=== PATIENT | female | born 1980 | race Hispanic/Latino ===

== ENCOUNTER 2018-04-26 10:16 | Emergency (ER) | payer SELFPAY ==
[2018-04-26] MEDS ORDERED: TETANUS & DIPHTHERIA TOX,ADULT 0.5 ML VIAL ONE (10:20)
[2018-04-26] MEDS ORDERED: ONDANSETRON 4 MG/2 ML VIAL ONE (10:20)
[2018-04-26] MEDS ORDERED: NA CHLORIDE 0.9% 1,000 ML ONE (10:30)
[2018-04-26] MEDS ORDERED: SILVER SULFADIAZINE 1% 25 GM TOP ONE (10:30)
[2018-04-26] MEDS ORDERED: HYDROMORPHONE HCL 1 MG/ML INJ ONE (11:09)
--- NOTE | 2018-04-26 11:09 | ER ---
Nurse's Notes [facility] Name: Judy Cho Age: 37 yrs Sex: Female : 1980 Arrival Date: 04/26/2018 Time: 10:17 Bed 7 Private MD: Diagnosis: Burn of second degree of ankle;Burn of first degree of left toe(s) (nail) Presentation: 04/26 10:20 Presenting complaint: Patient states: was making menudo when hot water spilled onto the sg top of her right foot and the interior right ankle, pain 10/10 described as burning, tender, throbbing. Transition of care: patient was not received from another setting of care. Onset of symptoms was April 26, 2018. Risk Assessment: Do you want to hurt yourself or someone else? Patient reports no desire to harm self or others. Initial Sepsis Screen: Does the patient meet any 2 criteria? No. Patient's initial sepsis screen is negative. Does the patient have a suspected source of infection? No. Patient's initial sepsis screen is negative. Care prior to arrival: None. 10:20 Method Of Arrival: Ambulatory sg 10:20 Acuity: MIAH 3 sg Triage Assessment: 10:30 Injury Description: sg Historical: - Allergies: 10:19 No Known Allergies; sv - Home Meds: 10:37 None [Active]; sg - PMHx: 10:37 None; sg - PSHx: 10:37 None; sg - Immunization history:: Adult Immunizations up to date, Last tetanus immunization: unknown. - Social history:: Smoking status: Patient/guardian denies using tobacco. - Ebola Screening: : Patient negative for fever greater than or equal to 101.5 degrees Fahrenheit, and additional compatible Ebola Virus Disease symptoms Patient denies exposure to infectious person Patient denies travel to an Ebola-affected area in the 21 days before illness onset No symptoms or risks identified at this time. Screenin:20 Abuse screen: Denies threats or abuse. Denies injuries from another. Nutritional sg screening: No deficits noted. Tuberculosis screening: No symptoms or risk factors identified. Never had TB. Fall Risk None identified. Assessment: 10:26 Reassessment: cool damp 4x4's applied to burned area per EDISON S.Shandra MACHINE STEMMER order. sg General: Appears in no apparent distress. uncomfortable, well groomed, well developed, well nourished, Behavior is calm, cooperative, appropriate for age. Pain: Complains of pain in dorsum of right foot and anterior aspect of right ankle Quality of pain is described as burning, throbbing. Neuro: No deficits noted. Cardiovascular: Heart tones S1 S2 present Capillary refill is brisk in bilateral fingers toes Patient's skin is warm and dry. Chest pain is denied. Respiratory: Airway is patent Respiratory effort is even, unlabored, Respiratory pattern is regular, tachypnea Breath sounds are clear. GI: Abdomen is round non-distended, obese, Patient currently denies abdominal pain, nausea, pain, vomiting. : No signs and/or symptoms were reported regarding the genitourinary system. EENT: No signs and/or symptoms were reported regarding the EENT system. Derm: Skin is normal. Musculoskeletal: Circulation, motion, and sensation intact. Range of motion: intact in all extremities, Swelling present in dorsum of right foot and anterior aspect of right ankle. Injury Description: Burn was sustained 30-60 minutes ago. Patient sustained second-degree burn(s) to anterior aspect of right ankle. Estimated total body surface area burned is 1.75%, using the Rule of 9's. blistering noted to burned area of foot. 11:20 Reassessment: Patient appears in no apparent distress at this time. Patient and/or sg family updated on plan of care and expected duration. Pain level reassessed. Patient is alert, oriented x 3, equal unlabored respirations, skin warm/dry/pink. Patient states feeling better. Vital Signs: 10:25 BP 176 / 98; Pulse 89; Resp 19; Temp 98.4(O); Pulse Ox 98% on R/A; Weight 90.72 kg; dh3 Height 5 ft. 7 in. (170.18 cm); Pain 10/10; 12:00 BP 155 / 62; Pulse 82; Resp 17 S; Pulse Ox 100% on R/A; Pain 6/10; sv 10:25 Body Mass Index 31.32 (90.72 kg, 170.18 cm) dh3 Elias Coma Score: 12:00 Eye Response: spontaneous(4). Verbal Response: oriented(5). Motor Response: obeys sv commands(6). Total: 15. ED Course: 04/25 10:30 Patient has correct armband on for positive identification. Bed in low position. Call sg light in reach. Side rails up X2. Pulse ox on. NIBP on. Verbal reassurance given. Head of bed elevated. Elevated right foot. 04/26 10:17 Patient arrived in ED. sv 10:18 Ishaan Lynch MD is Attending Physician. gs 10:18 Lydia Devi FNP-C is PHCP. snw 10:20 Arm band placed on. sg 10:35 Triage completed. sg 10:35 No provider procedures requiring assistance completed. Inserted saline lock: 20 gauge sg in left wrist, using aseptic technique. IV inserted by Sherice TONY. 10:44 Vinod Yao RN is Primary Nurse. sg 11:15 Dressings: non-adherent dressing x 2 dorsum of right foot and anterior aspect of right sg ankle Vaseline gauze X 2; dorsum of right foot and anterior aspect of right ankle bulky dressing x1 applied to right ankle and right foot. 12:39 IV discontinued, intact, bleeding controlled, No redness/swelling at site. Pressure ss dressing applied. 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 Exp: sg 06/25/2020. Lot #: [id number]. } Route: IM; Site: left deltoid; 12:40 Follow up: Response: No adverse reaction ss 10:33 Drug: NS 0.9% 1000 ml Route: IV; Rate: 1 bolus; Site: left wrist; sg 12:40 Follow up: IV Status: Completed infusion ss 11:14 Drug: Silvadene Cream 1 % 1 application Route: Topical; Site: affected area; sg 11:27 Drug: Dilaudid 1 mg Route: IM; Site: right deltoid; sg 12:10 Follow up: Response: No adverse reaction; Pain is decreased sg 11:27 Drug: Ancef 1 grams Route: IVPB; Site: left wrist; sg Outcome: 11:08 Discharge ordered by . snw 12:39 Discharged to home via wheelchair, with family. ss 12:39 Condition: good 12:39 Discharge instructions given to patient, family, Instructed on discharge instructions, follow up and referral plans. medication usage, Demonstrated understanding of instructions, follow-up care, medications, Prescriptions given X 3. 12:40 Patient left the ED. Signatures: Sowmya Avelar RN CHAVO Vinod Yao RN RN Lydia Devi, MACHINE STEMMER-C MACHINE STEMMER-Csnw Clari Sarmiento RN RN Silvina Thomas [facility] Ishaan Lynch MD MD
--- NOTE | 2018-04-26 11:09 | EDPHYS ---
Physician Documentation [facility] Name: Judy Cho Age: 37 yrs Sex: Female : 1980 Arrival Date: 04/26/2018 Time: 10:17 Bed 7 Private MD: ED Physician Ishaan Lynch HPI: 04/26 10:29 This 37 yrs old Female presents to ER via Unassigned with complaints of Burn. snw 10:29 The patient presents with a burn as a result of hot grease, while cooking, at work, is snw located on the anterior aspect of right ankle and right auguste and left first toe. Onset: The symptoms/episode began/occurred suddenly, just prior to arrival. Burn type and severity: 1st degree: 2nd degree:. Associated signs and symptoms: none. The patient did not suffer any apparent inhalation injury, The patient had no loss of consciousness. The patient has not experienced similar symptoms in the past. The patient has not recently seen a physician. Historical: - Allergies: 10:19 No Known Allergies; sv - Home Meds: 10:37 None [Active]; sg - PMHx: 10:37 None; sg - PSHx: 10:37 None; sg - Immunization history:: Adult Immunizations up to date, Last tetanus immunization: unknown. - Social history:: Smoking status: Patient/guardian denies using tobacco. - Ebola Screening: : Patient negative for fever greater than or equal to 101.5 degrees Fahrenheit, and additional compatible Ebola Virus Disease symptoms Patient denies exposure to infectious person Patient denies travel to an Ebola-affected area in the 21 days before illness onset No symptoms or risks identified at this time. ROS: 10:29 Constitutional: Negative for fever, chills, and weight loss, Eyes: Negative for injury, snw pain, redness, and discharge, ENT: Negative for injury, pain, and discharge, Neck: Negative for injury, pain, and swelling, Cardiovascular: Negative for chest pain, palpitations, and edema, Respiratory: Negative for shortness of breath, cough, wheezing, and pleuritic chest pain, Abdomen/GI: Negative for abdominal pain, nausea, vomiting, diarrhea, and constipation, Back: Negative for injury and pain, : Negative for injury, bleeding, discharge, and swelling, MS/Extremity: Negative for injury and deformity, Neuro: Negative for headache, weakness, numbness, tingling, and seizure. 10:29 Skin: Positive for burn, of the anterior aspect of right ankle and right auguste and left first toe. Exam: 10:27 Head/Face: Normocephalic, atraumatic. Eyes: Pupils equal round and reactive to light, snw extra-ocular motions intact. Lids and lashes normal. Conjunctiva and sclera are non-icteric and not injected. Cornea within normal limits. Periorbital areas with no swelling, redness, or edema. ENT: Nares patent. No nasal discharge, no septal abnormalities noted. Tympanic membranes are normal and external auditory canals are clear. Oropharynx with no redness, swelling, or masses, exudates, or evidence of obstruction, uvula midline. Mucous membranes moist. Neck: Trachea midline, no thyromegaly or masses palpated, and no cervical lymphadenopathy. Supple, full range of motion without nuchal rigidity, or vertebral point tenderness. No Meningismus. Chest/axilla: Normal chest wall appearance and motion. Nontender with no deformity. No lesions are appreciated. Cardiovascular: Regular rate and rhythm with a normal S1 and S2. No gallops, murmurs, or rubs. Normal PMI, no JVD. No pulse deficits. Respiratory: Lungs have equal breath sounds bilaterally, clear to auscultation and percussion. No rales, rhonchi or wheezes noted. No increased work of breathing, no retractions or nasal flaring. Abdomen/GI: Soft, non-tender, with normal bowel sounds. No distension or tympany. No guarding or rebound. No evidence of tenderness throughout. Back: No spinal tenderness. No costovertebral tenderness. Full range of motion. MS/ Extremity: Pulses equal, no cyanosis. Neurovascular intact. Full, normal range of motion. Neuro: Awake and alert, GCS 15, oriented to person, place, time, and situation. Cranial nerves II-XII grossly intact. Motor strength 5/5 in all extremities. Sensory grossly intact. Cerebellar exam normal. Normal gait. Psych: Awake, alert, with orientation to person, place and time. Behavior, mood, and affect are within normal limits. 10:27 Constitutional: The patient appears anxious, obese, in obvious pain, uncomfortable. 10:27 Skin: Appearance: normal except for affected area, injury, burn(s), 1st degree burn injury covers approximately .2% of the total body surface area, and is located on the left first toe, 2nd degree burn injury covers approximately 3.5% of the total body surface area, and is located on the distal right auguste and anterior aspect of right ankle. Vital Signs: 10:25 BP 176 / 98; Pulse 89; Resp 19; Temp 98.4(O); Pulse Ox 98% on R/A; Weight 90.72 kg; dh3 Height 5 ft. 7 in. (170.18 cm); Pain 10/10; 12:00 BP 155 / 62; Pulse 82; Resp 17 S; Pulse Ox 100% on R/A; Pain 6/10; sv 10:25 Body Mass Index 31.32 (90.72 kg, 170.18 cm) dh3 Elias Coma Score: 12:00 Eye Response: spontaneous(4). Verbal Response: oriented(5). Motor Response: obeys sv commands(6). Total: 15. MDM: 10:18 Patient medically screened. snw 11:10 Data reviewed: vital signs, nurses notes. Data interpreted: Pulse oximetry: on room air snw is 98 %. Interpretation: normal. Counseling: I had a detailed discussion with the patient and/or guardian regarding: the historical points, exam findings, and any diagnostic results supporting the discharge/admit diagnosis, the need for outpatient follow up, to return to the emergency department if symptoms worsen or persist or if there are any questions or concerns that arise at home. Special discussion: I have referred the patient to see his PCP for further evaluation of high blood pressure. Based on the history and exam findings, there is no indication for further emergent testing or inpatient evaluation. I discussed with the patient/guardian the need to see the primary care provider for further evaluation of the symptoms. 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 Exp: 06/25/2020. Lot #: [id number]. } Route: IM; Site: left deltoid; 12:40 Follow up: Response: No adverse reaction ss 10:33 Drug: NS 0.9% 1000 ml Route: IV; Rate: 1 bolus; Site: left wrist; sg 12:40 Follow up: IV Status: Completed infusion ss 11:14 Drug: Silvadene Cream 1 % 1 application Route: Topical; Site: affected area; sg 11:27 Drug: Dilaudid 1 mg Route: IM; Site: right deltoid; sg 12:10 Follow up: Response: No adverse reaction; Pain is decreased sg 11:27 Drug: Ancef 1 grams Route: IVPB; Site: left wrist; sg Disposition: 18:32 Co-signature as Attending Physician, Ishaan Lynch MD. Disposition: 04/26/18 11:08 Discharged to Home. Impression: Burn of second degree of ankle, Burn of first degree of left toe(s) (nail). - Condition is Stable. - Discharge Instructions: Burn Care, Hypertension, VIS, Tetanus, Diphtheria (Td) - CDC, Wound Care, [id number]. - Prescriptions for Keflex 500 mg Oral Capsule - take 1 capsule by ORAL route every 8 hours for 10 days; 30 capsule. Tylenol- Codeine #3 300-30 mg Oral Tablet - take 2 tablet by ORAL route every 6 hours As needed; 30 tablet. Silvadene 1 % Topical Cream - Apply to affected area 1 application by TOPICAL route every 12 hours; 50 gram. - Work release form, Medication Reconciliation Form, Thank You Letter, Antibiotic Education, Prescription Opioid Use form. - Follow up: Private Physician; When: 1 - 2 days; Reason: Recheck today's complaints, Continuance of care, Re-evaluation by your physician. Follow up: Emergency Department; When: As needed; Reason: Worsening of condition. Signatures: Sowmya Avelar RN RN Vinod Yao RN RN sg Therrien, Shelly, SYSTEMS TESTING LABORATORY TECHNICIAN-C SYSTEMS TESTING LABORATORY TECHNICIAN-Csnw Clari Sarmiento RN RN ss Starr, Gregory, MD MD Corrections: (The following items were deleted from the chart) 12:40 11:08 04/26/2018 11:08 Discharged to Home. Impression: Burn of second degree of ankle; ss Burn of first degree of left toe(s) (nail). Condition is Stable. Forms are Medication Reconciliation Form, Thank You Letter, Antibiotic Education, Prescription Opioid Use. Follow up: Private Physician; When: 1 - 2 days; Reason: Recheck today's complaints, Continuance of care, Re-evaluation by your physician. Follow up: Emergency Department; When: As needed; Reason: Worsening of condition. snw
[2018-04-26] MEDS ORDERED: CEFAZOLIN/SWI 1gm 1 GM/10 ML SYR ONE (11:10)
== END 2018-04-26 12:40 | disposition home or self-care (01) ==
LOC: ER 10:16
DX: T25.211A Burn of second degree of right ankle, initial encounter (principal); X10.2XXA Contact with fats and cooking oils, initial encounter; Y93.G3 Activity, cooking and baking; Y92.89 Other specified places as the place of occurrence of the external cause; Y99.8 Other external cause status
CPT/HCPCS: 90714; 96361; 96372; 96374; 96375; 99284; J0690; J1170; J2405; J7030

== ENCOUNTER 2021-12-01 16:37 | Emergency (ER) | payer SELFPAY ==
[2021-12-01] MEDS ORDERED: NA CHLORIDE 0.9% 1,000 ML ONE ×2 (18:09→19:46)
[2021-12-01 18:14] LABS: Urine Blood 1+ (Negative); Urine Glucose 2+ (Negative); Urine Protein Negative (Negative); Urine Specific Gravity 1.015 (1.005-1.030); Urine pH 5.5 (5.0-7.0)
[2021-12-01 18:20] LABS: Absolute Lymphocytes (CBC) 2.5 K/uL (0.7-4.9); Hematocrit 42.2 % (36.0-45.0); Lymphocytes % 31.5 % (15.3-44.8); RBC Red Blood Cell Count 4.92 M/uL (3.86-4.86)
[2021-12-01 18:40] LABS: Urine Bacteria <20 /HPF (<20); Urine RBC <5 /HPF (NONE SEEN)
[2021-12-01 19:26] LABS: ALT/SGPT 290 U/L (12-78); Albumin 3.8 g/dL (3.4-5.0); Alkaline Phosphatase 146 U/L (45-117); BUN Blood Urea Nitrogen 12 mg/dL (7-18); Bicarbonate 22 mmol/L (21-32); Bilirubin Direct 0.1 mg/dL (0-0.2); Bilirubin Total 0.4 mg/dL (0.2-1.0); Lipase 106 U/L (73-393); Protein, Total 8.3 g/dL (6.4-8.2); Sodium Level 131 mmol/L (136-145)
[2021-12-01 19:27] LABS: AST/SGOT 190 U/L (15-37); Potassium 3.9 mmol/L (3.5-5.1)
[2021-12-01 19:29] LABS: Glucose Level 422 mg/dL (74-106)
[2021-12-01] MEDS ORDERED: INSULIN -REGULAR HUMAN 50 UNIT/0.5 ML ML ONE (19:46)
--- NOTE | 2021-12-01 21:01 | EDPHYS ---
Physician Documentation [facility] Name: Judy Cho Age: 41 yrs Sex: Female : 1980 Arrival Date: 12/01/2021 Time: 16:41 Bed 4 Private MD: ED Physician Tre Van HPI: 12/01 17:30 This 41 yrs old Female presents to ER via Ambulatory with complaints of High cp Blood Sugar. 17:30 The patient or guardian reports hyperglycemia, polyuria, vaginal itching. Onset: The cp symptoms/episode began/occurred 2 week(s) ago. Current symptoms: In the emergency department the patient's symptoms are unchanged from the initial presentation, despite home interventions. 17:30 Patient reports she was referred to ED from [facility] for elevated blood glucose. cp Patient c/o urinary frequency, vaginal itching. Patient denies history of diabetes mellitus. 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 - Social history:: Smoking status: Patient denies any tobacco usage or history of. ROS: 17:35 Constitutional: Negative for body aches, chills, fever, poor PO intake. cp 17:35 Eyes: Negative for injury, pain, redness, and discharge. cp 17:35 ENT: Negative for drainage from ear(s), ear pain, sore throat, difficulty swallowing, difficulty handling secretions. 17:35 Cardiovascular: Negative for chest pain. 17:35 Respiratory: Negative for cough, shortness of breath, wheezing. 17:35 Abdomen/GI: Negative for abdominal pain, nausea, vomiting, and diarrhea. 17:35 : Positive for urinary frequency, vaginal itching. 17:35 Skin: Negative for rash. 17:35 Neuro: Negative for altered mental status, headache, weakness. 17:35 All other systems are negative. Exam: 17:40 Constitutional: The patient appears in no acute distress, alert, awake, cp non-diaphoretic, non-toxic, well developed, well nourished, obese. 17:40 Head/Face: Normocephalic, atraumatic. cp 17:40 Eyes: Periorbital structures: appear normal, Conjunctiva: normal, no exudate, no injection, Sclera: no appreciated abnormality, Lids and lashes: appear normal, bilaterally. 17:40 ENT: External ear(s): are unremarkable, Nose: is normal, Mouth: Lips: moist, Oral mucosa: pink and intact, moist, Posterior pharynx: Airway: no evidence of obstruction, patent. 17:40 Chest/axilla: Inspection: normal. 17:40 Cardiovascular: Rate: normal, Rhythm: regular, Edema: is not appreciated, JVD: is not appreciated. 17:40 Respiratory: the patient does not display signs of respiratory distress, Respirations: normal, no use of accessory muscles, no retractions, labored breathing, is not present, Breath sounds: are clear throughout, no decreased breath sounds, no stridor, no wheezing. 17:40 Abdomen/GI: Inspection: abdomen appears normal, Palpation: abdomen is soft and non-tender, in all quadrants. 17:40 Neuro: Orientation: to person, place \T\ time. Mentation: is normal, Motor: moves all fours, strength is normal, Sensation: is normal, Gait: is steady, at a normal pace, without difficulty. Vital Signs: 16:50 BP 133 / 78; Pulse 92; Resp 18; Temp 97.3; Pulse Ox 100% ; Weight 96.62 kg; Height 5 jh5 ft. 7 in. (170.18 cm); Pain 0/10; 19:16 BP 152 / 87; Pulse 72; Pulse Ox 99% on R/A; vc1 16:50 Body Mass Index 33.36 (96.62 kg, 170.18 cm) jh5 MDM: 17:17 Patient medically screened. cp 18:00 Differential diagnosis: DKA, hyperthyroidism, new onset diabetes. cp 21:00 Data reviewed: vital signs, nurses notes, lab test result(s). cp 21:00 Counseling: I had a detailed discussion with the patient and/or guardian regarding: the cp historical points, exam findings, and any diagnostic results supporting the discharge/admit diagnosis, lab results, the need for outpatient follow up, for definitive care, a family practitioner, to return to the emergency department if symptoms worsen or persist or if there are any questions or concerns that arise at home. Response to treatment: the patient's symptoms have markedly improved after treatment, patient is well hydrated. VSS. Labs reviewed and discussed with patient. Will start patient on oral metformin and discharge to home for continued monitoring. 02 17:05 Order name: Glucose, Ancillary Testing; Complete Time: 17:17 EDMS 12/01 17:17 Interpretation: Reviewed. cp 12/01 17:44 Order name: Basic Metabolic Panel; Complete Time: 19:32 cp 12/01 17:44 Order name: CBC with Diff; Complete Time: 18:44 cp 12/01 18:44 Interpretation: Normal except: RBC 4.92; BASO% 1.5. cp / 17:44 Order name: Hepatic Function; Complete Time: 19:32 cp 12/01 19:33 Interpretation: Normal except: ALT 290; ALK 146; TP 8.3; GLOB 4.5; A/G 0.8; AST 190. cp 12/01 17:44 Order name: Lipase; Complete Time: 19:32 cp 12/01 17:44 Order name: Urine Microscopic Only; Complete Time: 18:44 cp 12/01 18:45 Interpretation: Normal except: UWBC 20-50. cp 12/01 17:44 Order name: Ketone, Serum; Complete Time: 19:32 cp 12/01 18:14 Order name: Urine Dipstick-Ancillary; Complete Time: 18:44 EDMS 12/01 18:44 Interpretation: Normal except: UGLUC 2+; UKET 3+; UBLD 1+; UESTR Trace. cp / 18:40 Order name: Urine Culture EDMS 12/01 19:35 Order name: US Abdomen Limited cp 12/01 21:03 Order name: Glucose, Ancillary Testing EDMS 12/01 17:44 Order name: IV Saline Lock; Complete Time: 18:03 cp 12/01 17:44 Order name: Labs collected and sent; Complete Time: 18:03 cp 12/01 17:44 Order name: Urine Dipstick-Ancillary (obtain specimen); Complete Time: 18:16 cp 12/01 17:44 Order name: Urine Test (obtain specimen); Complete Time: 18:16 cp 12/01 19:35 Order name: NPO; Complete Time: 19:38 cp 12/01 20:52 Order name: Accucheck Blood Glucose; Complete Time: 20:53 cp Administered Medications: 18:07 Drug: NS 0.9% 1000 ml Route: IV; Rate: 1 bolus; Site: left antecubital; jh5 19:16 Follow up: IV Status: Completed infusion; IV Intake: 1000ml vc1 19:49 Drug: NovoLIN R (insulin regular human) 10 units {Co-Signature: as6 (Munir Wilson vc1 RN).} Route: Sub-Q; Site: right upper arm; 20:53 Follow up: Response: No adverse reaction vc1 19:49 Drug: NS 0.9% 1000 ml Route: IV; Rate: 1 bolus; Site: right antecubital; vc1 20:53 Follow up: Response: No adverse reaction; IV Status: Completed infusion; IV Intake: vc1 1000ml 21:18 Drug: metFORMIN 500 mg Route: PO; vc1 21:19 Follow up: Response: No adverse reaction vc1 21:18 Drug: DiFLUcan (fluconazole) 200 mg Route: PO; vc1 21:19 Follow up: Response: No adverse reaction vc1 Disposition Summary: 12/01/21 21:01 Discharge Ordered Location: Home cp Problem: new cp Symptoms: have improved cp Condition: Stable cp Diagnosis - Diabetes mellitus due to underlying condition with hyperglycemia cp Followup: cp - With: Private Physician - When: 2 - 3 days - Reason: Recheck today's complaints Discharge Instructions: - Discharge Summary Sheet cp - Hyperglycemia cp - Blood Glucose Monitoring, Adult cp - Diabetes Mellitus and Nutrition, Adult cp Forms: - Medication Reconciliation Form cp - Thank You Letter cp - Antibiotic Education cp - Prescription Opioid Use cp Prescriptions: - Metformin 500 mg Oral Tablet - take 1 tablet by ORAL route once daily for 7 days Then take 1 tablet with cp morning meals AND evening meals; 60 tablet; Refills: 0, Product Selection Permitted Addendum: 12/05/2021 00:51 Co-signature as Attending Physician, Tre Van MD. r n Signatures: Dispatcher [employer] Tre Portillo MD MD rn Page, Corey, PA PA cp Jenny Walton RN RN jh5 Rebecca Breaux RN RN vc1 Munir Wilson RN as6 Corrections: (The following items were deleted from the chart) 02/05 17:46 17:45 HEMOGLOBIN A1C+CHEM A1C.LAB.BRZ ordered. EDMS EDMS 18:44 18:44 Normal except: RBC 4.92. cp cp
--- NOTE | 2021-12-01 21:01 | ER ---
Nurse's Notes [facility] Name: Judy Cho Age: 41 yrs Sex: Female : 1980 Arrival Date: 12/01/2021 Time: 16:41 Bed 4 Private MD: Diagnosis: Diabetes mellitus due to underlying condition with hyperglycemia Presentation: 12/01 16:50 Chief complaint: Patient states: Pt has never been diagnosed with diabetes prior; went 5 to [facility] for UTI symtoms and had glucose detected in urine and sent here for glucose greater than 600; peeing a lot and thirsty all the time. Coronavirus screen: Vaccine status:. Coronavirus screen: Vaccine status: Patient reports being unvaccinated. Client denies travel out of the [place] in the last 14 days. Ebola Screen: Patient negative for fever greater than or equal to 101.5 degrees Fahrenheit, and additional compatible Ebola Virus Disease symptoms Patient denies exposure to infectious person. Patient denies travel to an Ebola-affected area in the 21 days before illness onset. Initial Sepsis Screen: Does the patient meet any 2 criteria? No. Patient's initial sepsis screen is negative. Does the patient have a suspected source of infection? No. Patient's initial sepsis screen is negative. Risk Assessment: Do you want to hurt yourself or someone else? Patient reports no desire to harm self or others. Onset of symptoms was October 2021. 16:50 Method Of Arrival: Ambulatory [facility] 16:50 Acuity: MIAH 3 5 Triage Assessment: 16:53 General: Appears in no apparent distress. obese, well developed, Behavior is calm, 5 cooperative, appropriate for age. Pain: Denies pain. 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 - Social history:: Smoking status: Patient denies any tobacco usage or history of. Screenin:54 Abuse screen: Denies threats or abuse. Denies injuries from another. Nutritional [facility] screening: No deficits noted. Tuberculosis screening: No symptoms or risk factors identified. Fall Risk None identified. Assessment: 16:55 Reassessment: glucose 490 in triage at this time. 5 21:19 Reassessment: Patient and/or family updated on plan of care and expected duration. Pain vc1 level reassessed. Patient is alert, oriented x 3, equal unlabored respirations, skin warm/dry/pink. Patient denies pain at this time. Patient states symptoms have improved. Vital Signs: 16:50 BP 133 / 78; Pulse 92; Resp 18; Temp 97.3; Pulse Ox 100% ; Weight 96.62 kg; Height 5 [facility] ft. 7 in. (170.18 cm); Pain 0/10; 19:16 BP 152 / 87; Pulse 72; Pulse Ox 99% on R/A; vc1 16:50 Body Mass Index 33.36 (96.62 kg, 170.18 cm) [facility] ED Course: 16:41 Patient arrived in ED. as 16:52 Evaristo Marks PA is PHCP. cp 16:52 Tre Van MD is Attending Physician. cp 16:53 Triage completed. 5 16:53 Arm band placed on right wrist. 5 16:54 Patient has correct armband on for positive identification. 5 17:24 Jenny Walton, RN is Primary Nurse. jh5 18:08 Basic Metabolic Panel Sent. cs9 18:08 CBC with Diff Sent. cs9 18:08 Hepatic Function Sent. cs9 18:08 Lipase Sent. cs9 18:16 Urine Microscopic Only Sent. cs9 19:16 Lipase Sent. vc1 19:16 Hepatic Function Sent. vc1 19:16 Basic Metabolic Panel Sent. vc1 19:20 Primary Nurse role handed off by Jenny Walton, RN mw2 19:29 Munir Wilson, CHAVO is Primary Nurse. as6 21:19 US Abdomen Limited In Process Unspecified. EDMS 21:19 No provider procedures requiring assistance completed. IV discontinued, intact, vc1 bleeding controlled, No redness/swelling at site. Pressure dressing applied. Administered Medications: 18:07 Drug: NS 0.9% 1000 ml Route: IV; Rate: 1 bolus; Site: left antecubital; 5 19:16 Follow up: IV Status: Completed infusion; IV Intake: 1000ml vc1 19:49 Drug: NovoLIN R (insulin regular human) 10 units {Co-Signature: as6 (Munir Wilson vc1 RN).} Route: Sub-Q; Site: right upper arm; 20:53 Follow up: Response: No adverse reaction vc1 19:49 Drug: NS 0.9% 1000 ml Route: IV; Rate: 1 bolus; Site: right antecubital; vc1 20:53 Follow up: Response: No adverse reaction; IV Status: Completed infusion; IV Intake: vc1 1000ml 21:18 Drug: metFORMIN 500 mg Route: PO; vc1 21:19 Follow up: Response: No adverse reaction vc1 21:18 Drug: DiFLUcan (fluconazole) 200 mg Route: PO; vc1 21:19 Follow up: Response: No adverse reaction vc1 Intake: 19:16 IV: 1000ml; Total: 1000ml. vc1 20:53 IV: 1000ml; Total: 2000ml. vc1 Outcome: 21:01 Discharge ordered by MD. cp 21:19 Discharged to home ambulatory, with family. vc1 21:19 Condition: good 21:19 Discharge instructions given to patient, significant other, Instructed on discharge instructions, follow up and referral plans. medication usage, Demonstrated understanding of instructions, follow-up care, medications, Prescriptions given X 1. 21:20 Patient left the ED. vc1 Signatures: Dispatcher [employer] Mila Gabriel Corey, PA PA cp [place], MyKena mw2 Lucero Delgadillo cs9 Jenny Walton RN RN jh5 Munir Wilson RN RN as6 Rebecca Breaux RN RN vc1 Munir Wilson RN as6
[2021-12-01] MEDS ORDERED: FLUCONAZOLE 100 MG TAB ONE (21:12)
[2021-12-01] MEDS ORDERED: METFORMIN HCL 500 MG TAB ONE (21:12)
[2021-12-01 21:39] VITALS: TEMP 97.3
[2021-12-01 21:40] VITALS: BP 152/87; O2SAT 99
--- NOTE | 2021-12-01 21:47 | RAD REPORT ---
EXAM DESCRIPTION: US - Abdomen Exam Limited - 12/01/2021 9:19 pm CLINICAL HISTORY: Elevated liver function test enzymes COMPARISON: None. FINDINGS: Liver has an increased echotexture. Portal vein is patent with hepatopetal flow. A lesion is not visualized The gallbladder wall is not thickened. A gallstone is not seen. The biliary tree is normal caliber. IMPRESSION: Increased hepatic echotexture consistent with fatty infiltration
== END 2021-12-01 21:20 | disposition home or self-care (01) ==
LOC: ER 16:37
DX: E11.65 Type 2 diabetes mellitus with hyperglycemia (principal)
CPT/HCPCS: 36415; 76705; 80048; 80076; 81003; 81015; 82010; 82947; 83690; 85025; 87086; 87088; 96360; 96361; 96372; 99284; J7030

== ENCOUNTER 2025-06-15 18:19 | Inpatient (IN) | payer SELFPAY ==
--- OUTSIDE RECORDS SUMMARY | 2025-06-15 18:25 | XMS REPORT | Continuity of Care Document ---
Author Name Unknown Address [address] [facility] [address] [place] [address] [facility] Address [address] [facility] [address] [place] [address] Care Team Providers Care Product Applications Scientist Name Role Phone PCP, PATIENT DOES NOT HAVE A Primary Care Physic valentine Unavailable Coty Osman Attending Clinician [phone] COTY REYNOSO Attending Clinician Unavailable COTY REYNOSO Admitting Clinician Unavailable Allergies, Adverse Reactions, Alerts Allergy Name Allergy Type Status Severity Reaction(s) Onset Date Inactive Date Treating Clinician Comments Source NO KNOWN ALLERGIE S Drug Class Active [facility] Social History Social Habit Start Date Stop Date Quantity Comments Source Exposure to SARS-CoV-2 (event) 2022-11-28 00:00:00 2022-12-08 15:56:00 Not sure [facility] Sex Assigned At 1980 00:00:00 1980 00:00:00 [facility] Smoking Status Start Date Stop Date Source Tobacco smoking consumption unknown [facility] Medications Ordered Medication Name Filled Medication Name Start Date Stop Date Current Medication? Ordering Clinician Indication Dosage Frequency Signature (SIG) Comments Components Source metronidazo le 500 mg tablet 07-14 00:00: 00 Yes 1mg Yobany Zia Mandujano nitrofurant oin monohydrate /macrocryst als 100 mg capsule 07-14 00:00: 00 Yes 1mg Yobany F Delbert Januvia 100 mg tablet 06-21 00:00: 00 Yes 1mg Yobany Mandujano glimepiride 2 mg tablet 06-21 00:00: 00 Yes 1mg Yobany Mandujano Janumet 50 mg-1,000 mg tablet 05-11 00:00: 00 Yes 1mg Yobany Mandujano atorvastati n 80 mg tablet 05-11 00:00: 00 Yes 1mg Yobany Mandujano glimepiride 2 mg tablet 04-20 00:00: 00 Yes 1mg Yobany Mandujano Victoza 3-Celio 0.6 mg/0.1 mL (18 mg/3 mL) subcutaneou s pen injector 04-05 00:00: 00 Yes (18 mg/3 mL) Yobany Mandujano atorvastati n 20 mg tablet 04-01 00:00: 00 Yes 1mg Yobany Mandujano chlorthalid one 25 mg tablet 04-01 00:00: 00 Yes 1mg Yobany Mandujano lisinopril 10 mg tablet 04-01 00:00: 00 Yes 1mg Yobany Mandujano Janumet 50 mg-1,000 mg tablet 04-01 00:00: 00 Yes 1mg Yobany Mandujano TAKE 1 TABLET TWICE DAILY WITH MEALS 06-26 00:00: 00 02-08 00:00 :00 No [id number] Yobany Mandujano TAKE 1 TABLET EVERY MORNING. 06-26 00:00: 00 02-08 00:00 :00 No 10 Yobany Mandujano TAKE 1 TABLET DAILY. 06-26 00:00: 00 02-08 00:00 :00 No 20 Yobanymicah Mandujano TAKE 1 TABLET DAILY. 06-26 00:00: 00 02-08 00:00 :00 No 25 Yobany Mandujano TAKE 1 TABLET DAILY. 01-10 00:00: 00 02-08 00:00 :00 No 20 Yobany Mandujano TAKE 1 TABLET DAILY. 309 00:00: 00 02-08 00:00 :00 No 25 Yobanymicah Mandujano TAKE 1 TABLET TWICE DAILY WITH MEALS 01-02 00:00: 00 02-08 00:00 :00 No [id number] Yobany Mandujano TAKE 1 TABLET EVERY MORNING. - 00:00: 00 02-08 00:00 :00 No 10 Yobany Mandujano lisinopriL (PRINIVIL,Z ESTRIL) tablet 10 mg 12-08 22:45: 00 12-08 22:01 :00 No 10mg 10 mg, Oral, ONCE NOW, 1 dose, On 12/08/22 at 1645, JOSEMANUEL [facility] metFORMIN 1,000 mg tablet 12-08 17:20: 03 Yes 1000mg Take 1,000 mg by mouth in the morning. [facility] LISINOPRIL ORAL 12-08 17:20: 02 Yes 10mg Take 10 mg by mouth. [facility] fluticasone propionate 50 mcg/actuati on nasal spray 12-08 00:00: 00 Yes [id number] 2{spray } Use 2 Sprays in each nostril in the morning. [facility] lisinopriL 10 mg tablet 12-08 00:00: 00 Yes [id number] 10mg Take 1 tablet by mouth at bedtime. [facility] codeine-gua ifenesin 10-100 mg/5 mL oral solution 12-08 00:00: 00 12-16 05:59 :00 No [id number] 10mL Take 10 mL by mouth every 6 (six) hours as needed for Cough for up to 7 days. Indication s: acute pain [facility] benzonatate 200 mg capsule 12-08 00:00: 00 12-08 00:00 :00 No [id number] 200mg Take 1 capsule by mouth 3 (three) times daily as needed for Cough. [facility] Dose Unknown 6-24 00:00: 00 Yes Yobany Mandujano Dose Unknown 04-17 00:00: 00 Yes Yobany Mandujano Dose Unknown 2022-0 6-22 00:00: 00 Yes Yobany Mandujano Dose Unknown 0 6-22 00:00: 00 Yes Yobany Mandujano Dose Unknown 4-19 00:00: 00 Yes Yobany Mandujano Dose Unknown 0 4-19 00:00: 00 Yes Yobany Mandujano Dose Unknown 0 4-19 00:00: 00 Yes Yobany Mandujano Dose Unknown 3-04 00:00: 00 Yes Yobany Mandujano Dose Unknown 3-04 00:00: 00 Yes Yobany Mandujano Dose Unknown 3-04 00:00: 00 Yes Yobany Mandujano Dose Unknown 2-16 00:00: 00 Yes Yobany Mandujano Dose Unknown 2-16 00:00: 00 Yes Yobany Mandujano metformin 500 mg tablet 12-05 00:00: 00 Yes 1mg Yobany Mandujano Dose Unknown 2 00:00: 00 Yes Yobany Mandujano Zithromax Z-Celio 250 mg tablet 05-14 00:00: 00 Yes mg Yobany Mandujano promethazin e-DM 6.25 mg-15 mg/5 mL oral syrup 05-14 00:00: 00 Yes 5mg/5 mL Yobany Mandujano ibuprofen 800 mg tablet 02-10 00:00: 00 Yes 1mg Yobany Mandujano triamcinolo ne acetonide 0.1 % topical ointment 2014-10 00:00: 00 Yes 1% Yobany Mandujano Vital Signs Vital Name Observation Time Observation Value Comments S ource Systolic blood pressure 2022-12-08 21:56:00 161 mm[Hg] [place] [facility] Diastolic blood pressure 2022-12-08 21:56:00 110 mm[Hg] [place] [facility] Heart rate 2022-12-08 21:50:00 103 /min [facility] Body temperature 2022-12-08 21:50:00 36.78 Keisha [facility] Respiratory rate 2022-12-08 21:50:00 18 /min [facility] Body height 2022-12-08 21:50:00 167.6 cm [facility] Body weight 2022-12-08 21:50:00 96.616 kg [facility] BMI 2022-12-08 21:50:00 34.38 kg/m2 [facility] Oxygen saturation in Arterial blood by Pulse oximetry 2022-12-08 21:50:00 100 /min [facility] BP Systolic 2024-08-10 16:23:00 132 mm[Hg] Step hen F Delbert BP Diastolic 2024-08-10 16:23:00 86 mm[Hg] Agus phen F Delbert Weight Measured 2024-08-10 16:23:00 185.00 pounds Yobany F Delbert Height Measured 2024-08-10 16:23:00 64.00 inches Yobany F Delbert Body Temperature 2024-08-10 16:23:00 97.90 degrees Yobany F Delbert Heart Rate 2024-08-10 16:23:00 90.00 /min Jeane en F Delbert Respiratory Rate 2024-08-10 16:23:00 20.00 /min Yobany F Delbert BP Systolic 2024-07-07 16:31:00 137 mm[Hg] Step hen F Delbert BP Diastolic 2024-07-07 16:31:00 72 mm[Hg] Agus phen F Delbert Weight Measured 2024-07-07 16:31:00 182.80 pounds Yobany F Delbert Height Measured 2024-07-07 16:31:00 64.00 inches Yobany F Delbert Body Temperature 2024-07-07 16:31:00 97.70 degrees Yobany F Delbert Heart Rate 2024-07-07 16:31:00 84.00 /min Jeane en F Delbert Respiratory Rate 2024-07-07 16:31:00 18.00 /min Yobany F Delbert BP Systolic 2024-06-21 15:02:00 139 mm[Hg] Step hen F Delbert BP Diastolic 2024-06-21 15:02:00 85 mm[Hg] Agus phen F Delbert Weight Measured 2024-06-21 15:02:00 187.00 pounds Yobany F Delbert Height Measured 2024-06-21 15:02:00 64.00 inches Yobany F Delbert Body Temperature 2024-06-21 15:02:00 97.80 degrees Yobany F Delbert Heart Rate 2024-06-21 15:02:00 85.00 /min Jeane en F Delbert Respiratory Rate 2024-06-21 15:02:00 18.00 /min Yobany F Delbert BP Systolic 2024-05-11 17:51:00 147 mm[Hg] Step hen F Delbert BP Diastolic 2024-05-11 17:51:00 99 mm[Hg] Agus phen F Delbert Weight Measured 2024-05-11 17:51:00 179.50 pounds Yobany F Delbert Height Measured 2024-05-11 17:51:00 64.00 inches Yobany F Delbert Body Temperature 2024-05-11 17:51:00 98.40 degrees Yobany F Delbert Heart Rate 2024-05-11 17:51:00 87.00 /min Jeane en F Delbert Respiratory Rate 2024-05-11 17:51:00 16.00 /min Yobany F Delbert BP Systolic 2024-05-11 17:16:00 147 mm[Hg] Step hen F Delbert BP Diastolic 2024-05-11 17:16:00 99 mm[Hg] Agus phen F Delbert Weight Measured 2024-05-11 17:16:00 179.50 pounds Yobany F Delbert Height Measured 2024-05-11 17:16:00 64.00 inches Yobany F Delbert Body Temperature 2024-05-11 17:16:00 98.40 degrees Yobany F Delbert Heart Rate 2024-05-11 17:16:00 87.00 /min Jeane en F Delbert Respiratory Rate 2024-05-11 17:16:00 16.00 /min Yobany F Edlbert BP Systolic 2024-04-20 16:03:00 141 mm[Hg] Step hen F Delbert BP Diastolic 2024-04-20 16:03:00 84 mm[Hg] Agus phen F Delbert Weight Measured 2024-04-20 16:03:00 182.80 pounds Yobany F Delbert Height Measured 2024-04-20 16:03:00 64.00 inches Yobany F Delbert Body Temperature 2024-04-20 16:03:00 98.30 degrees Yobany F Delbert Heart Rate 2024-04-20 16:03:00 67.00 /min Jeane en F Delbert Respiratory Rate 2024-04-20 16:03:00 18.00 /min Yobany F Delbert Body Temperature 2024-04-01 15:25:00 98.20 degrees Yobany F Delbert Heart Rate 2024-04-01 15:25:00 83.00 /min Jeane en F Delbert Respiratory Rate 2024-04-01 15:25:00 18.00 /min Yobany F Delbert BP Systolic 2024-04-01 15:25:00 123 mm[Hg] Step hen F Delbert BP Diastolic 2024-04-01 15:25:00 85 mm[Hg] Agus phen F Delbert Weight Measured 2024-04-01 15:25:00 191.20 pounds Yobany F Delbert Height Measured 2024-04-01 15:25:00 64.00 inches Yobany F Delbert BP Systolic 2023-06-26 16:33:00 104 mm[Hg] Step hen F Delbert BP Diastolic 2023-06-26 16:33:00 75 mm[Hg] Agus phen F Delbert Weight Measured 2023-06-26 16:33:00 212.80 pounds Yobany F Delbert Height Measured 2023-06-26 16:33:00 64.00 inches Yobany F Delbert Body Temperature 2023-06-26 16:33:00 98.30 degrees Yobany F Delbert Heart Rate 2023-06-26 16:33:00 84.00 /min Jeane en F Delbert Respiratory Rate 2023-06-26 16:33:00 17.00 /min Yobany F Delbert BP Systolic 2023-01-02 14:04:00 133 mm[Hg] Step hen F Delbert BP Diastolic 2023-01-02 14:04:00 83 mm[Hg] Agus phen F Delbert Weight Measured 2023-01-02 14:04:00 213.60 pounds Yobany F Delbert Height Measured 2023-01-02 14:04:00 64.00 inches Yobany F Delbert Body Temperature 2023-01-02 14:04:00 98.40 degrees Yobany F Delbert Heart Rate 2023-01-02 14:04:00 76.00 /min Jeane en F Delbert Respiratory Rate 2023-01-02 14:04:00 17.00 /min Yobany F Delbert BP Systolic 2022-04-17 08:14:00 164 mm[Hg] Step hen F Delbert BP Diastolic 2022-04-17 08:14:00 97 mm[Hg] Agus phen F Delbert Weight Measured 2022-04-17 08:14:00 205.00 pounds Yobany F Delbert Height Measured 2022-04-17 08:14:00 64.00 inches Yobany F Delbert Body Temperature 2022-04-17 08:14:00 98.10 degrees Yobany F Delbert Heart Rate 2022-04-17 08:14:00 68.00 /min Jeane en F Delbert Respiratory Rate 2022-04-17 08:14:00 17.00 /min Yobany F Delbert BP Systolic 2022-02-12 16:36:00 155 mm[Hg] Step hen F Delbert BP Diastolic 2022-02-12 16:36:00 85 mm[Hg] Agus phen F Delbert Weight Measured 2022-02-12 16:36:00 205.40 pounds Yobany F Delbert Height Measured 2022-02-12 16:36:00 64.00 inches Yobany F Delbert Body Temperature 2022-02-12 16:36:00 98.30 degrees Yobany F Delbert Heart Rate 2022-02-12 16:36:00 78.00 /min Jeane en F Delbert Respiratory Rate 2022-02-12 16:36:00 16.00 /min Yobany F Delbert BP Systolic 2021-12-12 15:07:00 144 mm[Hg] Step hen F Delbert BP Diastolic 2021-12-12 15:07:00 88 mm[Hg] Agus phen F Delbert Weight Measured 2021-12-12 15:07:00 205.40 pounds Yobany F Delbert Height Measured 2021-12-12 15:07:00 64.00 inches Yobany F Delbert Body Temperature 2021-12-12 15:07:00 98.30 degrees Yobany F Delbert Heart Rate 2021-12-12 15:07:00 86.00 /min Jeane en F Delbert Respiratory Rate 2021-12-12 15:07:00 16.00 /min Yobany F Delbert BP Systolic 2021-12-05 16:00:00 142 mm[Hg] Step hen F Delbert BP Diastolic 2021-12-05 16:00:00 80 mm[Hg] Agus phen F Delbert Weight Measured 2021-12-05 16:00:00 211.80 pounds Yobany F Delbert Height Measured 2021-12-05 16:00:00 64.00 inches Yobany F Delbert Body Temperature 2021-12-05 16:00:00 98.30 degrees Yobany F Delbert Heart Rate 2021-12-05 16:00:00 86.00 /min Jeane en F Delbert Respiratory Rate 2021-12-05 16:00:00 16.00 /min Yobany F Delbert BP Systolic 2021-12-01 14:07:00 136 mm[Hg] Step hen F Delbert BP Diastolic 2021-12-01 14:07:00 83 mm[Hg] Agus phen F Delbert Weight Measured 2021-12-01 14:07:00 213.60 pounds Yobany F Delbert Height Measured 2021-12-01 14:07:00 64.00 inches Yobany F Delbert Body Temperature 2021-12-01 14:07:00 97.30 degrees Yobany F Delbert Heart Rate 2021-12-01 14:07:00 96.00 /min Jeane en F Delbert Respiratory Rate 2021-12-01 14:07:00 16.00 /min Yobany F Delbert BP Systolic 2019-05-27 16:12:00 135 mm[Hg] Step hen F Delbert BP Diastolic 2019-05-27 16:12:00 86 mm[Hg] Agus phen F Delbert Weight Measured 2019-05-27 16:12:00 215.80 pounds Yobany F Delbert Height Measured 2019-05-27 16:12:00 64.00 inches Yobany F Delbert Body Temperature 2019-05-27 16:12:00 98.50 degrees Yobany F Delbert Heart Rate 2019-05-27 16:12:00 70.00 /min Jeane en F Delbert Respiratory Rate 2019-05-27 16:12:00 16.00 /min Yobany F Delbert BP Systolic 2017-05-13 15:06:00 137 mm[Hg] Step hen F Delbert BP Diastolic 2017-05-13 15:06:00 94 mm[Hg] Agus phen F Delbert Weight Measured 2017-05-13 15:06:00 186.40 pounds Yobany F Delbert Height Measured 2017-05-13 15:06:00 64.00 inches Yobany F Delbert Body Temperature 2017-05-13 15:06:00 99.40 degrees Yobany F Delbert Heart Rate 2017-05-13 15:06:00 86.00 /min Jeane Mandujano Respiratory Rate 2017-05-13 15:06:00 16.00 /min Yobany Mandujano Procedures Procedure Date / Time Performed Performing [facility] [id number] Ultrasound, Abdominal, Real Time With Image Documentation; Complete 2024-05-27 00:00:00 Yobany Mandujano RAPID STREP SCREEN FOR GROUP A 2022-12-08 22:00:00 Coty Reynoso [facility] RAPID INFLUENZA A/B 2022-12-08 22:00:00 Deanna Reynoso [facility] COVID-19 (ID NOW RAPID TESTING) 2022-12-08 22:00:00 Coty Reynoso [facility] NOTICE OF PRIVACY PRACTICES 2022-12-08 21:49:44 Doctor Unassigned, Chama [facility] CONSENT/REFUSAL FOR DIAGNOSIS AND TREATMENT 2022-12-08 21:47:15 Doctor Unassigned, Chama [facility] Encounters Start Date/Time End Date/Time Encounter Type Admission Type Attending [facility] Care Department Encounter ID Source 2025-05-12 14:09:03 2025-05-12 14:09:[address] [facility] [id number] Yobany Mandujano 2024-08-10 16:21:52 2024-08-10 16:21:52 Outpatient [facility] [id number] Yobany Mandujano 2024-08-10 00:00:00 2024-08-10 00:00:[address] [facility] [id number] Yobany Mandujano 2024-07-07 16:24:05 2024-07-07 16:24:[address] [facility] [id number] Yobany Mandujano 2024-07-07 00:00:00 2024-07-07 00:00:[address] [facility] [id number] Yobany Mandujano 2024-06-21 14:57:54 2024-06-21 14:57:[address] [facility] [id number] Yobany Mandujano 2024-06-21 00:00:00 2024-06-21 00:00:00 Outpatient Visit [facility] [id number] Yobany Mandujano 2024-05-27 15:39:17 2024-05-27 15:39:17 Outpatient [facility] [id number] Yobany Mandujano 2024-05-11 17:04:05 2024-05-11 17:04:05 Outpatient [facility] [id number] Yobany Mandujano 2024-05-11 00:00:00 2024-05-11 00:00:00 Outpatient Visit [facility] [id number] Yobany Mandujano 2024-04-20 16:03:16 2024-04-20 16:03:16 Outpatient [facility] 25 Yobany Mandujano 2024-04-20 00:00:00 2024-04-20 00:00:00 Outpatient Visit [facility] [id number] Yobany Mandujano 2024-04-01 15:01:24 2024-04-01 15:01:24 Outpatient [facility] 06 Yobany Mandujano 2024-04-01 00:00:00 2024-04-01 00:00:00 Outpatient Visit [facility] [id number] oYbany Mandujano 2023-07-11 14:22:58 2023-07-11 14:22:58 Outpatient [facility] [id number] Yobany Mandujano 2023-06-26 16:24:13 2023-06-26 16:24:13 Outpatient [facility] [id number] Yobany Mandujano 2023-01-02 14:09:40 2023-01-02 14:09:40 Outpatient [facility] [id number] Yobany Mandujano 2022-12-08 15:58:00 2022-12-08 17:28:00 Emergency Coty Reynoso [facility] [id number] [facility] 2022-12-08 15:58:00 2022-12-08 17:28:00 Emergency X COTY REYNOSO [facility] ERT [id number] [facility] 2022-12-08 15:58:00 2022-12-08 17:28:00 Emergency X COTY REYNOSO [facility] ERT [id number] [facility] Results Test Description Test Time Test Comments Results Result Co mments Source VAGINAL PATHOGENS DNA [id number] 00:00:00* Test Item Value Reference Range Interpretation Comme [facility] JANET SPECIES (test code = 45009) NEGATIVE G. VAGINALIS (test code = 76418) POSITIVE T. VAGINALIS (test code = 38754) NEGATIVE Yobany MandujanoCUURE, [id number] 08:04:24SPECIMEN NUMBER: [id number] CULTURE, URINE SPECIMEN NUMBER: [id number] SOURCE: URINE REPORT STATUS: FINAL ISOLATE NUMBER 1: ORGANISM: 07/10/2024 >100,000 CFU/ML GRAM NEGATIVE BACILLI IDENTIFICATION:07/11/2024 ESCHERICHIA COLI E. COLI AMOXICILLIN/CA SENSITIVE <=8/4AMPICILLIN SENSITIVE <=8CEFAZOLIN SENSITIVE <=2CEFTRIAXONE SENSITIVE <=1CIPROFLOXACIN SENSITIVE <=0.25LEVOFLOXACIN SENSITIVE <=0.5NITROFURANTOIN SENSITIVE <=32PIP/TAZOBAC SENSITIVE <=16TOBRAMYCI N SENSITIVE <=4TRIMETH/SULFA SENSITIVE <=2/38 NOTE: NUMBERS DISPLAYED REPRESENT MINIMUM INHIBITORY CONCENTRATION (BELKIS) WHICH IS EXPRESSED IN MCG/ML.CULTURE, [id number] 00:00:00* Test Item Value Reference Range Interpretation Comme nts CULTURE, URINE (test code = 23723) SPECIMEN NUMBER: [id number] Yobany MandujanoCOMPREHENSIVE METABOLIC [id number] 00:00:00* Test Item Value Reference Range Interpretation Comme nts GLUCOSE (test code = 2217) 410 MG/DL BUN (test code = 2208) 10 MG/DL CREATININE (test code = 2214) 0.48 MG/DL eGFR (2020 CKD-EPI) (test code = 36083) 119 ML/MIN/1.73 CALC BUN/CREAT (test code = 2235) 21 RATIO SODIUM (test code = 2231) 134 MEQ/L POTASSIUM (test code = 2228) 4.2 MEQ/L CHLORIDE (test code = 2215) 99 MEQ/L CARBON DIOXIDE (test code = 2206) 22 MEQ/L CALCIUM (test code = 2209) 9.2 MG/DL PROTEIN, TOTAL (test code = 2229) 7.4 G/DL ALBUMIN (test code = 2201) 4.5 G/DL CALC GLOBULIN (test code = 2240) 2.9 G/DL CALC A/G RATIO (test code = 2234) 1.6 RATIO BILIRUBIN, TOTAL (test code = 2207) 0.5 MG/DL ALKALINE PHOSPHATASE (test code = 2204) 118 U/L AST (test code = 2218) 239 U/L ALT (test code = 2219) 273 U/L Yobany MandujanoLIPID [id number] 00:00:00* Test Item Value Reference Range Interpretation Comme nts CHOLESTEROL (test code = 2210) 191 MG/DL TRIGLYCERIDES (test code = 2232) 344 MG/DL HDL CHOLESTEROL (test code = 2220) 29 MG/DL CALC LDL CHOL (test code = 2237) 113 MG/DL RISK RATIO LDL/HDL (test cod e = 2238) 3.90 RATIO Yobany MandujanoHEMOGLOBIN [id number] 00:00:00* Test Item Value Reference Range Interpretation Comme nts HEMOGLOBIN A1c (test code = 72452) 9.7 % Yobany Lizarraga DelbertALBUMIN/CREATININE RATIO, RANDOM [id number] 00:00:00* Test Item Value Reference Range Interpretation Comme nts CREATININE, URINE, CONC. (te st code = 2072) 81.2 MG/DL ALBUMIN, URINE, RANDOM (test code = 40462) 1.8 MG/DL CALC ALBUMIN/CREAT, RND (kyara t code = 61597) 22 MG/G Yobany Lizarraga DelbertCOMPREHENSIVE METABOLIC [id number] 00:00:00* Test Item Value Reference Range Interpretation Comme nts GLUCOSE (test code = 2217) 410 MG/DL BUN (test code = 2208) 10 MG/DL CREATININE (test code = 2214) 0.48 MG/DL eGFR (2020 CKD-EPI) (test code = 48000) 119 ML/MIN/1.73 CALC BUN/CREAT (test code = 2235) 21 RATIO SODIUM (test code = 2231) 134 MEQ/L POTASSIUM (test code = 2228) 4.2 MEQ/L CHLORIDE (test code = 2215) 99 MEQ/L CARBON DIOXIDE (test code = 2206) 22 MEQ/L CALCIUM (test code = 2209) 9.2 MG/DL PROTEIN, TOTAL (test code = 2229) 7.4 G/DL ALBUMIN (test code = 2201) 4.5 G/DL CALC GLOBULIN (test code = 2240) 2.9 G/DL CALC A/G RATIO (test code = 2234) 1.6 RATIO BILIRUBIN, TOTAL (test code = 2207) 0.5 MG/DL ALKALINE PHOSPHATASE (test code = 2204) 118 U/L AST (test code = 2218) 239 U/L ALT (test code = 2219) 273 U/L Yobany MandujanoLIPID [id number] 00:00:00* Test Item Value Reference Range Interpretation Comme nts CHOLESTEROL (test code = 2210) 191 MG/DL TRIGLYCERIDES (test code = 2232) 344 MG/DL HDL CHOLESTEROL (test code = 2220) 29 MG/DL CALC LDL CHOL (test code = 2237) 113 MG/DL RISK RATIO LDL/HDL (test cod e = 2238) 3.90 RATIO Yobany MandujanoHEMOGLOBIN [id number] 00:00:00* Test Item Value Reference Range Interpretation Comme nts HEMOGLOBIN A1c (test code = 89386) 9.7 % Yobany Lizarraga DelbertALBUMIN/CREATININE RATIO, RANDOM [id number] 00:00:00* Test Item Value Reference Range Interpretation Comme nts CREATININE, URINE, CONC. (te st code = 2072) 81.2 MG/DL ALBUMIN, URINE, RANDOM (test code = 52547) 1.8 MG/DL CALC ALBUMIN/CREAT, RND (kyara t code = 09243) 22 MG/G Yobany Lizarraga DelbertCOMPREHENSIVE METABOLIC [id number] 00:00:00* Test Item Value Reference Range Interpretation Comme nts GLUCOSE (test code = 2217) 410 MG/DL BUN (test code = 2208) 10 MG/DL CREATININE (test code = 2214) 0.48 MG/DL eGFR (2020 CKD-EPI) (test code = 50204) 119 ML/MIN/1.73 CALC BUN/CREAT (test code = 2235) 21 RATIO SODIUM (test code = 2231) 134 MEQ/L POTASSIUM (test code = 2228) 4.2 MEQ/L CHLORIDE (test code = 2215) 99 MEQ/L CARBON DIOXIDE (test code = 2206) 22 MEQ/L CALCIUM (test code = 2209) 9.2 MG/DL PROTEIN, TOTAL (test code = 2229) 7.4 G/DL ALBUMIN (test code = 2201) 4.5 G/DL CALC GLOBULIN (test code = 2240) 2.9 G/DL CALC A/G RATIO (test code = 2234) 1.6 RATIO BILIRUBIN, TOTAL (test code = 2207) 0.5 MG/DL ALKALINE PHOSPHATASE (test code = 2204) 118 U/L AST (test code = 2218) 239 U/L ALT (test code = 2219) 273 U/L Yobany MandujanoLIPID [id number] 00:00:00* Test Item Value Reference Range Interpretation Comme nts CHOLESTEROL (test code = 2210) 191 MG/DL TRIGLYCERIDES (test code = 2232) 344 MG/DL HDL CHOLESTEROL (test code = 2220) 29 MG/DL CALC LDL CHOL (test code = 2237) 113 MG/DL RISK RATIO LDL/HDL (test cod e = 2238) 3.90 RATIO Yobany MandujanoHEMOGLOBIN [id number] 00:00:00* Test Item Value Reference Range Interpretation Comme nts HEMOGLOBIN A1c (test code = 81077) 9.7 % Yobany MandujanoALBUMIN/CREATININE RATIO, RANDOM [id number] 00:00:00* Test Item Value Reference Range Interpretation Comme nts CREATININE, URINE, CONC. (te st code = 2072) 81.2 MG/DL ALBUMIN, URINE, RANDOM (test code = 36338) 1.8 MG/DL CALC ALBUMIN/CREAT, RND (kyara t code = 10301) 22 MG/G Yobany MandujanoCOMPREHENSIVE METABOLIC [id number] 00:00:00* Test Item Value Reference Range Interpretation Comme nts GLUCOSE (test code = 2217) 410 MG/DL BUN (test code = 2208) 10 MG/DL CREATININE (test code = 2214) 0.48 MG/DL eGFR (2020 CKD-EPI) (test code = 99395) 119 ML/MIN/1.73 CALC BUN/CREAT (test code = 2235) 21 RATIO SODIUM (test code = 2231) 134 MEQ/L POTASSIUM (test code = 2228) 4.2 MEQ/L CHLORIDE (test code = 2215) 99 MEQ/L CARBON DIOXIDE (test code = 2206) 22 MEQ/L CALCIUM (test code = 2209) 9.2 MG/DL PROTEIN, TOTAL (test code = 2229) 7.4 G/DL ALBUMIN (test code = 2201) 4.5 G/DL CALC GLOBULIN (test code = 2240) 2.9 G/DL CALC A/G RATIO (test code = 2234) 1.6 RATIO BILIRUBIN, TOTAL (test code = 2207) 0.5 MG/DL ALKALINE PHOSPHATASE (test code = 2204) 118 U/L AST (test code = 2218) 239 U/L ALT (test code = 2219) 273 U/L Yobany MandujanoLIPID [id number] 00:00:00* Test Item Value Reference Range Interpretation Comme nts CHOLESTEROL (test code = 2210) 191 MG/DL TRIGLYCERIDES (test code = 2232) 344 MG/DL HDL CHOLESTEROL (test code = 2220) 29 MG/DL CALC LDL CHOL (test code = 2237) 113 MG/DL RISK RATIO LDL/HDL (test cod e = 2238) 3.90 RATIO Yobany MandujanoHEMOGLOBIN [id number] 00:00:00* Test Item Value Reference Range Interpretation Comme brando HEMOGLOBIN A1c (test code = 28031) 9.7 % Yobany MandujanoALBUMIN/CREATININE RATIO, RANDOM [id number] 00:00:00* Test Item Value Reference Range Interpretation Comme nts CREATININE, URINE, CONC. (te st code = 2072) 81.2 MG/DL ALBUMIN, URINE, RANDOM (test code = 65829) 1.8 MG/DL CALC ALBUMIN/CREAT, RND (kyara t code = 93016) 22 MG/G Yobany MandujanoCOMPREHENSIVE METABOLIC [id number] 00:00:00* Test Item Value Reference Range Interpretation Comme nts GLUCOSE (test code = 2217) 410 MG/DL BUN (test code = 2208) 10 MG/DL CREATININE (test code = 2214) 0.48 MG/DL eGFR (2020 CKD-EPI) (test code = 58450) 119 ML/MIN/1.73 CALC BUN/CREAT (test code = 2235) 21 RATIO SODIUM (test code = 2231) 134 MEQ/L POTASSIUM (test code = 2228) 4.2 MEQ/L CHLORIDE (test code = 2215) 99 MEQ/L CARBON DIOXIDE (test code = 2206) 22 MEQ/L CALCIUM (test code = 2209) 9.2 MG/DL PROTEIN, TOTAL (test code = 2229) 7.4 G/DL ALBUMIN (test code = 2201) 4.5 G/DL CALC GLOBULIN (test code = 2240) 2.9 G/DL CALC A/G RATIO (test code = 2234) 1.6 RATIO BILIRUBIN, TOTAL (test code = 2207) 0.5 MG/DL ALKALINE PHOSPHATASE (test code = 2204) 118 U/L AST (test code = 2218) 239 U/L ALT (test code = 2219) 273 U/L Yobany MandujanoLIPID [id number] 00:00:00* Test Item Value Reference Range Interpretation Comme nts CHOLESTEROL (test code = 2210) 191 MG/DL TRIGLYCERIDES (test code = 2232) 344 MG/DL HDL CHOLESTEROL (test code = 2220) 29 MG/DL CALC LDL CHOL (test code = 2237) 113 MG/DL RISK RATIO LDL/HDL (test cod e = 2238) 3.90 RATIO Yobany MandujanoHEMOGLOBIN [id number] 00:00:00* Test Item Value Reference Range Interpretation Comme brando HEMOGLOBIN A1c (test code = 29846) 9.7 % Yobany MandujanoALBUMIN/CREATININE RATIO, RANDOM [id number] 00:00:00* Test Item Value Reference Range Interpretation Comme brando CREATININE, URINE, CONC. (te st code = 2072) 81.2 MG/DL ALBUMIN, URINE, RANDOM (test code = 80048) 1.8 MG/DL CALC ALBUMIN/CREAT, RND (kyara t code = 95685) 22 MG/G Yobany MandujanoCOMPREHENSIVE METABOLIC [id number] 00:00:00* Test Item Value Reference Range Interpretation Comme nts GLUCOSE (test code = 2217) 410 MG/DL BUN (test code = 2208) 10 MG/DL CREATININE (test code = 2214) 0.48 MG/DL eGFR (2020 CKD-EPI) (test code = 85620) 119 ML/MIN/1.73 CALC BUN/CREAT (test code = 2235) 21 RATIO SODIUM (test code = 2231) 134 MEQ/L POTASSIUM (test code = 2228) 4.2 MEQ/L CHLORIDE (test code = 2215) 99 MEQ/L CARBON DIOXIDE (test code = 2206) 22 MEQ/L CALCIUM (test code = 2209) 9.2 MG/DL PROTEIN, TOTAL (test code = 2229) 7.4 G/DL ALBUMIN (test code = 2201) 4.5 G/DL CALC GLOBULIN (test code = 2240) 2.9 G/DL CALC A/G RATIO (test code = 2234) 1.6 RATIO BILIRUBIN, TOTAL (test code = 2207) 0.5 MG/DL ALKALINE PHOSPHATASE (test code = 2204) 118 U/L AST (test code = 2218) 239 U/L ALT (test code = 2219) 273 U/L Yobany MandujanoLIPID [id number] 00:00:00* Test Item Value Reference Range Interpretation Comme nts CHOLESTEROL (test code = 2210) 191 MG/DL TRIGLYCERIDES (test code = 2232) 344 MG/DL HDL CHOLESTEROL (test code = 2220) 29 MG/DL CALC LDL CHOL (test code = 2237) 113 MG/DL RISK RATIO LDL/HDL (test cod e = 2238) 3.90 RATIO Yobany MandujanoHEMOGLOBIN [id number] 00:00:00* Test Item Value Reference Range Interpretation Comme brando HEMOGLOBIN A1c (test code = 15096) 9.7 % Yobany MandujanoALBUMIN/CREATININE RATIO, RANDOM [id number] 00:00:00* Test Item Value Reference Range Interpretation Comme brando CREATININE, URINE, CONC. (te st code = 2071) 81.2 MG/DL ALBUMIN, URINE, RANDOM (test code = 16441) 1.8 MG/DL CALC ALBUMIN/CREAT, RND (kyara t code = 43223) 22 MG/G Yobany MandujanoALBUMIN/CREATININE RATIO, URINE, [id number] 05:44:42* Test Item Value Reference Range Interpretation Comme nts CREATININE, URINE, CONC. (test code = 2071) 121.8 MG/DL NOT ESTAB ALBUMIN, URINE, RANDOM (test code = 55076) 0.6 MG/DL NOT ESTAB CALC ALBUMIN/CREAT, RND (test code = 70978) 5 MG/G <30 Note: Albumin/Creatinine ratio reference interval reflects ADA and NKF guidelines. HEMOGLOBIN [id number] 04:09:29* Test Item Value Reference Range Interpretation Comme nts HEMOGLOBIN A1c (test code = 62094) 6.0 % 4.2-5.6 H [employer] GUIDELINES FOR HGB A1C: PREDIABETES/INCREASED RISK . . . . . . . 5.7-6.4% DIAGNOSIS OF DIABETES . . . . . . . . . >=6.5% WITH CONFIRMATION OR APPROPRIATE SYMPTOMS NOTE: ASSAY MAY BE AFFECTED BY HEMOGLOBINOPATHIES (SICKLE CELL ANEMIA, S-C DISEASE, OTHERS) OR ARTIFICIALLY LOWERED BY DECREASED RED CELL SURVIVAL (HEMOLYTIC ANEMIAS, BLOOD LOSS, ETC.). CONSIDER ALTERNATE TESTING OR LABORATORY CONSULTATION. UNLESS OTHERWISE INDICATED, ALL TESTING PERFORMED AT [facility] [address] [place] [address] QUALITY OFFICER: ABRIL GAITAN M.D. [place] NUMBER [id number] [facility] [place]. [id number] HEMOGLOBIN [id number] 00:00:00* Test Item Value Reference Range Interpretation Comme nts HEMOGLOBIN A1c (test code = 12569) 6.0 % Yobany MandujanoALBUMIN/CREATININE RATIO, RANDOM [id number] 00:00:00* Test Item Value Reference Range Interpretation Comme nts CREATININE, URINE, CONC. (te st code = 2071) 121.8 MG/DL ALBUMIN, URINE, RANDOM (test code = 31977) 0.6 MG/DL CALC ALBUMIN/CREAT, RND (kyara t code = 02340) 5 MG/G Yobany MandujanoHEMOGLOBIN [id number] 00:00:00* Test Item Value Reference Range Interpretation Comme nts HEMOGLOBIN A1c (test code = 95156) 6.0 % Yobany Lizarraga AustinALBUMIN/CREATININE RATIO, RANDOM [id number] 00:00:00* Test Item Value Reference Range Interpretation Comme nts CREATININE, URINE, CONC. (te st code = 2072) 121.8 MG/DL ALBUMIN, URINE, RANDOM (test code = 99138) 0.6 MG/DL CALC ALBUMIN/CREAT, RND (kyara t code = 18592) 5 MG/G Yobany Lizarraga AustinHEMOGLOBIN [id number] 00:00:00* Test Item Value Reference Range Interpretation Comme nts HEMOGLOBIN A1c (test code = 65548) 6.0 % Yobany Lizarraga AustinALBUMIN/CREATININE RATIO, RANDOM [id number] 00:00:00* Test Item Value Reference Range Interpretation Comme nts CREATININE, URINE, CONC. (te st code = 2072) 121.8 MG/DL ALBUMIN, URINE, RANDOM (test code = 90777) 0.6 MG/DL CALC ALBUMIN/CREAT, RND (kyara t code = 99481) 5 MG/G Yobany Lizarraga AustinHEMOGLOBIN [id number] 00:00:00* Test Item Value Reference Range Interpretation Comme nts HEMOGLOBIN A1c (test code = 89393) 6.0 % Yobany Lizarraga AustinALBUMIN/CREATININE RATIO, RANDOM [id number] 00:00:00* Test Item Value Reference Range Interpretation Comme nts CREATININE, URINE, CONC. (te st code = 2072) 121.8 MG/DL ALBUMIN, URINE, RANDOM (test code = 30751) 0.6 MG/DL CALC ALBUMIN/CREAT, RND (kyara t code = 23620) 5 MG/G Yobany Lizarraga AustinHEMOGLOBIN [id number] 00:00:00* Test Item Value Reference Range Interpretation Comme nts HEMOGLOBIN A1c (test code = 57516) 6.0 % Yobany Lizarraga AustinALBUMIN/CREATININE RATIO, RANDOM [id number] 00:00:00* Test Item Value Reference Range Interpretation Comme nts CREATININE, URINE, CONC. (te st code = 207) 121.8 MG/DL ALBUMIN, URINE, RANDOM (test code = 22701) 0.6 MG/DL CALC ALBUMIN/CREAT, RND (kyara t code = 16842) 5 MG/G Yobany MandujanoHEMOGLOBIN [id number] 00:00:00* Test Item Value Reference Range Interpretation Comme brando HEMOGLOBIN A1c (test code = 55135) 6.0 % Yobany MandujanoALBUMIN/CREATININE RATIO, RANDOM [id number] 00:00:00* Test Item Value Reference Range Interpretation Comme brando CREATININE, URINE, CONC. (te st code = 2072) 121.8 MG/DL ALBUMIN, URINE, RANDOM (test code = 61232) 0.6 MG/DL CALC ALBUMIN/CREAT, RND (kyara t code = 75322) 5 MG/G Yobany MandujanoCOMPREHENSIVE METABOLIC [id number] 09:37:48* Test Item Value Reference Range Interpretation Comme brando GLUCOSE (test code = 2217) 90 MG/DL 70-99 BUN (test code = 8) 12 MG/DL 6-20 CREATININE (test code = 2214) 0.98 MG/DL 0.60-1.30 eGFR (2020 CKD-EPI) (test code = 16262) 73 ML/MIN/1.73 >60 CALC BUN/CREAT (test code = 2235) 12 RATIO 6-28 SODIUM (test code = 2231) 137 MEQ/L 133-146 POTASSIUM (test code = 2228) 4.4 MEQ/L 3.5-5.4 CHLORIDE (test code = 2215) 103 MEQ/L 95-107 CARBON DIOXIDE (test code = 2206) 18 MEQ/L 19-31 L CALCIUM (test code = 2209) 10.3 MG/DL 8.5-10.5 PROTEIN, TOTAL (test code = 222) 8.0 G/DL 6.1-8.3 ALBUMIN (test code = 2201) 4.8 G/DL 3.5-5.2 CALC GLOBULIN (test code = 2240) 3.2 G/DL 1.9-3.7 CALC A/G RATIO (test code = 2234) 1.5 RATIO 1.0-2.6 BILIRUBIN, TOTAL (test code = 7) <0.2 MG/DL See_Comment [Automated me ssage] The system which generated this result transmitted reference range: <=1.2. The reference range was not used to interpret this result as normal/abnormal. ALKALINE PHOSPHATASE (test code = 2204) 79 U/L 40-115 AST (test code = 2218) 56 U/L 9-40 H ALT (test code = 2219) 61 U/L 5-40 H LIPID [id number] 09:37:48* Test Item Value Reference Range Interpretation Comme nts CHOLESTEROL (test code = 2210) 242 MG/DL <200 H TRIGLYCERIDES (test code = 2232) 319 MG/DL <150 H HDL CHOLESTEROL (test code = 2220) 40 MG/DL >39 CALC LDL CHOL (test code = 2237) 153 MG/DL <100 H NOTE: CALCULATED LDL IS BASED ON JIMMY-VICENTE METHOD WHICHINCLUDES ADJUSTABLE TRIGLYCERIDE:VLDL CHOLESTEROL RATIO.THIS FACTOR VARIES BY MEASURED TRIGLYCERIDE AND NON-HDLCHOLESTEROL CONCENTRATIONS WITH INCREASED CALCULATED LDL SEENIN HIGHER TRIGLYCERIDE OR LOWER NON-HDL SPECIMENS. FOR MOREINFORMATION, SEE CLIENT ANNOUNCEMENT AT [email or web address] RISK RATIO LDL/HDL (test code = 2238) 3.83 RATIO <3.22 H TSH, THIRD [id number] 09:36:10* Test Item Value Reference Range Interpretation Comme nts TSH, THIRD GENERATION (test code = 2821) 3.860 UIU/ML 0.400-4.100 [facility] has impo rtant pathology staff changes effective 12/25/2022. New pathology staff will provide uninterrupted, excellent patient care and clinical consultation. See URL: [email or web address]. UNLESS OTHERWISE INDICATED, ALL TESTING PERFORMED AT [facility] [address] [place] [id number] QUALITY OFFICER: ABRIL GAITAN M.D. CLIA NUMBER [id number] [facility] [place]. [id number] CBC W/AUTO DIFF WITH [id number] 03:53:16* Test Item Value Reference Range Interpretation Comme nts WBC (test code = 1001) 9.1 K/UL 3.5-11.0 RBC (test code = 1002) 4.49 M/UL 3.80-5.40 HEMOGLOBIN (test code = 1003) 12.5 G/DL 11.5-15.5 HEMATOCRIT (test code = 1004) 39.0 % 34.0-45.0 MCV (test code = 1005) 86.9 fL 80.0-99.0 MCH (test code = 1006) 27.8 PG 25.0-33.0 MCHC (test code = 1007) 32.1 G/DL 31.0-36.0 RDW (test code = 1038) 13.1 % 11.5-15.0 NEUTROPHILS (test code = 1008) 54.3 % LYMPHOCYTES (test code = 1010) 34.9 % MONOCYTES (test code = 1011) 7.3 % EOSINOPHILS (test code = 1012) 2.6 % BASOPHILS (test code = 1013) 0.8 % IMMATURE GRANULOCYTES (test code = 1036) 0.1 % NUCLEATED RBCS (test code = 1065) 0.0 /100 WBC'S See_Comment [Automated [employer] ge] The system which generated this result transmitted reference range: 0.0. The reference range was not used to interpret this result as normal/abnormal. PLATELET COUNT (test code = 1015) 308 K/UL 130-400 ABSOLUTE NEUTROPHILS (test code = 1066) 4.96 K/UL 1.50-7.50 ABSOLUTE LYMPHOCYTES (test code = 1067) 3.19 K/UL 1.00-4.00 ABSOLUTE MONOCYTES (test code = 1068) 0.67 K/UL 0.20-1.00 ABSOLUTE EOSINOPHILS (test code = 1040) 0.24 K/UL 0.00-0.50 ABSOLUTE BASOPHILS (test code = 1069) 0.07 K/UL 0.00-0.20 ABS IMMATURE GRANULOCYTES (test code = 1020) 0.01 K/UL 0.00-0.10 ABS NUCLEATED RBCS (test code = 88537) 0.00 K/UL 0.00-0.11 HEMOGLOBIN [id number] 02:48:02* Test Item Value Reference Range Interpretation Comme nts HEMOGLOBIN A1c (test code = 72016) 6.1 % 4.2-5.6 H [employer] GUIDELINES FOR HGB A1C: PREDIABETES/INCREASED RISK . . . . . . . 5.7-6.4% DIAGNOSIS OF DIABETES . . . . . . . . . >=6.5% WITH CONFIRMATION OR APPROPRIATE SYMPTOMS NOTE: ASSAY MAY BE AFFECTED BY HEMOGLOBINOPATHIES (SICKLE CELL ANEMIA, S-C DISEASE, OTHERS) OR ARTIFICIALLY LOWERED BY DECREASED RED CELL SURVIVAL (HEMOLYTIC ANEMIAS, BLOOD LOSS, ETC.). CONSIDER ALTERNATE TESTING OR LABORATORY CONSULTATION. HEMOGLOBIN [id number] 00:00:00* Test Item Value Reference Range Interpretation Comme nts HEMOGLOBIN A1c (test code = 08682) 6.1 % Yobany MandujanoCBC W/AUTO [id number] 00:00:00* Test Item Value Reference Range Interpretation Comme nts WBC (test code = 1001) 9.1 K/UL RBC (test code = 1002) 4.49 M/UL HEMOGLOBIN (test code = 1003) 12.5 G/DL HEMATOCRIT (test code = 1004) 39.0 % MCV (test code = 1005) 86.9 fL MCH (test code = 1006) 27.8 PG MCHC (test code = 1007) 32.1 G/DL RDW (test code = 1038) 13.1 % NEUTROPHILS (test code = 1008) 54.3 % LYMPHOCYTES (test code = 1010) 34.9 % MONOCYTES (test code = 1011) 7.3 % EOSINOPHILS (test code = 1012) 2.6 % BASOPHILS (test code = 1013) 0.8 % IMMATURE GRANULOCYTES (test code = 1036) 0.1 % NUCLEATED RBCS (test code = 1065) 0.0 /100WBC'S PLATELET COUNT (test code = 1015) 308 K/UL ABSOLUTE NEUTROPHILS (test c ode = 1066) 4.96 K/UL ABSOLUTE LYMPHOCYTES (test c ode = 1067) 3.19 K/UL ABSOLUTE MONOCYTES (test cod e = 1068) 0.67 K/UL ABSOLUTE EOSINOPHILS (test c ode = 1040) 0.24 K/UL ABSOLUTE BASOPHILS (test cod e = 1069) 0.07 K/UL ABS IMMATURE GRANULOCYTES (t est code = 1020) 0.01 K/UL ABS NUCLEATED RBCS (test cod e = 11407) 0.00 K/UL Yobany MandujanoCOMPREHENSIVE METABOLIC [id number] 00:00:00* Test Item Value Reference Range Interpretation Comme nts GLUCOSE (test code = 2217) 90 MG/DL BUN (test code = 2208) 12 MG/DL CREATININE (test code = 2214) 0.98 MG/DL eGFR (2020 CKD-EPI) (test co de = 47931) 73 ML/MIN/1.73 CALC BUN/CREAT (test code = 2235) 12 RATIO SODIUM (test code = 2231) 137 MEQ/L POTASSIUM (test code = 2228) 4.4 MEQ/L CHLORIDE (test code = 2215) 103 MEQ/L CARBON DIOXIDE (test code = 2206) 18 MEQ/L CALCIUM (test code = 2209) 10.3 MG/DL PROTEIN, TOTAL (test code = 2229) 8.0 G/DL ALBUMIN (test code = 2201) 4.8 G/DL CALC GLOBULIN (test code = 2240) 3.2 G/DL CALC A/G RATIO (test code = 2234) 1.5 RATIO BILIRUBIN, TOTAL (test code = 2207) <0.2 MG/DL ALKALINE PHOSPHATASE (test code = 2204) 79 U/L AST (test code = 2218) 56 U/L ALT (test code = 2219) 61 U/L Yobany MandujanoLIPID [id number] 00:00:00* Test Item Value Reference Range Interpretation Comme nts CHOLESTEROL (test code = 2210) 242 MG/DL TRIGLYCERIDES (test code = 2232) 319 MG/DL HDL CHOLESTEROL (test code = 2220) 40 MG/DL CALC LDL CHOL (test code = 2237) 153 MG/DL RISK RATIO LDL/HDL (test cod e = 2238) 3.83 RATIO Yobany MandujanoTSH, THIRD [id number] 00:00:00* Test Item Value Reference Range Interpretation Comme nts TSH, THIRD GENERATION (test code = 2821) 3.860 UIU/ML Yobany MandujanoHEMOGLOBIN [id number] 00:00:00* Test Item Value Reference Range Interpretation Comme nts HEMOGLOBIN A1c (test code = 41592) 6.1 % Yobany MandujanoCBC W/AUTO [id number] 00:00:00* Test Item Value Reference Range Interpretation Comme nts WBC (test code = 1001) 9.1 K/UL RBC (test code = 1002) 4.49 M/UL HEMOGLOBIN (test code = 1003) 12.5 G/DL HEMATOCRIT (test code = 1004) 39.0 % MCV (test code = 1005) 86.9 fL MCH (test code = 1006) 27.8 PG MCHC (test code = 1007) 32.1 G/DL RDW (test code = 1038) 13.1 % NEUTROPHILS (test code = 1008) 54.3 % LYMPHOCYTES (test code = 1010) 34.9 % MONOCYTES (test code = 1011) 7.3 % EOSINOPHILS (test code = 1012) 2.6 % BASOPHILS (test code = 1013) 0.8 % IMMATURE GRANULOCYTES (test code = 1036) 0.1 % NUCLEATED RBCS (test code = 1065) 0.0 /100WBC'S PLATELET COUNT (test code = 1015) 308 K/UL ABSOLUTE NEUTROPHILS (test c ode = 1066) 4.96 K/UL ABSOLUTE LYMPHOCYTES (test c ode = 1067) 3.19 K/UL ABSOLUTE MONOCYTES (test cod e = 1068) 0.67 K/UL ABSOLUTE EOSINOPHILS (test c ode = 1040) 0.24 K/UL ABSOLUTE BASOPHILS (test cod e = 1069) 0.07 K/UL ABS IMMATURE GRANULOCYTES (t est code = 1020) 0.01 K/UL ABS NUCLEATED RBCS (test cod e = 14528) 0.00 K/UL Yobany F DelbertCOMPREHENSIVE METABOLIC [id number] 00:00:00* Test Item Value Reference Range Interpretation Comme nts GLUCOSE (test code = 2217) 90 MG/DL BUN (test code = 2208) 12 MG/DL CREATININE (test code = 2214) 0.98 MG/DL eGFR (2020 CKD-EPI) (test co de = 11985) 73 ML/MIN/1.73 CALC BUN/CREAT (test code = 2235) 12 RATIO SODIUM (test code = 2231) 137 MEQ/L POTASSIUM (test code = 2228) 4.4 MEQ/L CHLORIDE (test code = 2215) 103 MEQ/L CARBON DIOXIDE (test code = 2206) 18 MEQ/L CALCIUM (test code = 2209) 10.3 MG/DL PROTEIN, TOTAL (test code = 2229) 8.0 G/DL ALBUMIN (test code = 2201) 4.8 G/DL CALC GLOBULIN (test code = 2240) 3.2 G/DL CALC A/G RATIO (test code = 2234) 1.5 RATIO BILIRUBIN, TOTAL (test code = 2207) <0.2 MG/DL ALKALINE PHOSPHATASE (test code = 2204) 79 U/L AST (test code = 2218) 56 U/L ALT (test code = 2219) 61 U/L Yobany MandujanoLIPID [id number] 00:00:00* Test Item Value Reference Range Interpretation Comme nts CHOLESTEROL (test code = 2210) 242 MG/DL TRIGLYCERIDES (test code = 2232) 319 MG/DL HDL CHOLESTEROL (test code = 2220) 40 MG/DL CALC LDL CHOL (test code = 2237) 153 MG/DL RISK RATIO LDL/HDL (test cod e = 2238) 3.83 RATIO Yobany MandujanoTSH, THIRD [id number] 00:00:00* Test Item Value Reference Range Interpretation Comme brando TSH, THIRD GENERATION (test code = 2821) 3.860 UIU/ML Yobany MandujanoHEMOGLOBIN [id number] 00:00:00* Test Item Value Reference Range Interpretation Comme brando HEMOGLOBIN A1c (test code = 94700) 6.1 % Yobany MandujanoCBC W/AUTO [id number] 00:00:00* Test Item Value Reference Range Interpretation Comme nts WBC (test code = 1001) 9.1 K/UL RBC (test code = 1002) 4.49 M/UL HEMOGLOBIN (test code = 1003) 12.5 G/DL HEMATOCRIT (test code = 1004) 39.0 % MCV (test code = 1005) 86.9 fL MCH (test code = 1006) 27.8 PG MCHC (test code = 1007) 32.1 G/DL RDW (test code = 1038) 13.1 % NEUTROPHILS (test code = 1008) 54.3 % LYMPHOCYTES (test code = 1010) 34.9 % MONOCYTES (test code = 1011) 7.3 % EOSINOPHILS (test code = 1012) 2.6 % BASOPHILS (test code = 1013) 0.8 % IMMATURE GRANULOCYTES (test code = 1036) 0.1 % NUCLEATED RBCS (test code = 1065) 0.0 /100WBC'S PLATELET COUNT (test code = 1015) 308 K/UL ABSOLUTE NEUTROPHILS (test c ode = 1066) 4.96 K/UL ABSOLUTE LYMPHOCYTES (test c ode = 1067) 3.19 K/UL ABSOLUTE MONOCYTES (test cod e = 1068) 0.67 K/UL ABSOLUTE EOSINOPHILS (test c ode = 1040) 0.24 K/UL ABSOLUTE BASOPHILS (test cod e = 1069) 0.07 K/UL ABS IMMATURE GRANULOCYTES (t est code = 1020) 0.01 K/UL ABS NUCLEATED RBCS (test cod e = 84818) 0.00 K/UL Yobany MandujanoCOMPREHENSIVE METABOLIC [id number] 00:00:00* Test Item Value Reference Range Interpretation Comme nts GLUCOSE (test code = 2217) 90 MG/DL BUN (test code = 2208) 12 MG/DL CREATININE (test code = 2214) 0.98 MG/DL eGFR (2020 CKD-EPI) (test co de = 93536) 73 ML/MIN/1.73 CALC BUN/CREAT (test code = 2235) 12 RATIO SODIUM (test code = 2231) 137 MEQ/L POTASSIUM (test code = 2228) 4.4 MEQ/L CHLORIDE (test code = 2215) 103 MEQ/L CARBON DIOXIDE (test code = 2206) 18 MEQ/L CALCIUM (test code = 2209) 10.3 MG/DL PROTEIN, TOTAL (test code = 2229) 8.0 G/DL ALBUMIN (test code = 2201) 4.8 G/DL CALC GLOBULIN (test code = 2240) 3.2 G/DL CALC A/G RATIO (test code = 2234) 1.5 RATIO BILIRUBIN, TOTAL (test code = 2207) <0.2 MG/DL ALKALINE PHOSPHATASE (test code = 2204) 79 U/L AST (test code = 2218) 56 U/L ALT (test code = 2219) 61 U/L Yobany MandujanoLIPID [id number] 00:00:00* Test Item Value Reference Range Interpretation Comme nts CHOLESTEROL (test code = 2210) 242 MG/DL TRIGLYCERIDES (test code = 2232) 319 MG/DL HDL CHOLESTEROL (test code = 2220) 40 MG/DL CALC LDL CHOL (test code = 2237) 153 MG/DL RISK RATIO LDL/HDL (test cod e = 2238) 3.83 RATIO Yobany Lizarraga [facility]MULT[facility], THIRD [id number] 00:00:00* Test Item Value Reference Range Interpretation Comme nts TSH, THIRD GENERATION (test code = 2821) 3.860 UIU/ML Yobany MandujanoHEMOGLOBIN [id number] 00:00:00* Test Item Value Reference Range Interpretation Comme nts HEMOGLOBIN A1c (test code = 07351) 6.1 % Yobany MandujanoCBC W/AUTO [id number] 00:00:00* Test Item Value Reference Range Interpretation Comme nts WBC (test code = 1001) 9.1 K/UL RBC (test code = 1002) 4.49 M/UL HEMOGLOBIN (test code = 1003) 12.5 G/DL HEMATOCRIT (test code = 1004) 39.0 % MCV (test code = 1005) 86.9 fL MCH (test code = 1006) 27.8 PG MCHC (test code = 1007) 32.1 G/DL RDW (test code = 1038) 13.1 % NEUTROPHILS (test code = 1008) 54.3 % LYMPHOCYTES (test code = 1010) 34.9 % MONOCYTES (test code = 1011) 7.3 % EOSINOPHILS (test code = 1012) 2.6 % BASOPHILS (test code = 1013) 0.8 % IMMATURE GRANULOCYTES (test code = 1036) 0.1 % NUCLEATED RBCS (test code = 1065) 0.0 /100WBC'S PLATELET COUNT (test code = 1015) 308 K/UL ABSOLUTE NEUTROPHILS (test c ode = 1066) 4.96 K/UL ABSOLUTE LYMPHOCYTES (test c ode = 1067) 3.19 K/UL ABSOLUTE MONOCYTES (test cod e = 1068) 0.67 K/UL ABSOLUTE EOSINOPHILS (test c ode = 1040) 0.24 K/UL ABSOLUTE BASOPHILS (test cod e = 1069) 0.07 K/UL ABS IMMATURE GRANULOCYTES (t est code = 1020) 0.01 K/UL ABS NUCLEATED RBCS (test cod e = 05485) 0.00 K/UL Yobany MandujanoCOMPREHENSIVE METABOLIC [id number] 00:00:00* Test Item Value Reference Range Interpretation Comme nts GLUCOSE (test code = 2217) 90 MG/DL BUN (test code = 2208) 12 MG/DL CREATININE (test code = 2214) 0.98 MG/DL eGFR (2020 CKD-EPI) (test co de = 28547) 73 ML/MIN/1.73 CALC BUN/CREAT (test code = 2235) 12 RATIO SODIUM (test code = 2231) 137 MEQ/L POTASSIUM (test code = 2228) 4.4 MEQ/L CHLORIDE (test code = 2215) 103 MEQ/L CARBON DIOXIDE (test code = 2206) 18 MEQ/L CALCIUM (test code = 2209) 10.3 MG/DL PROTEIN, TOTAL (test code = 2229) 8.0 G/DL ALBUMIN (test code = 2201) 4.8 G/DL CALC GLOBULIN (test code = 2240) 3.2 G/DL CALC A/G RATIO (test code = 2234) 1.5 RATIO BILIRUBIN, TOTAL (test code = 2207) <0.2 MG/DL ALKALINE PHOSPHATASE (test code = 2204) 79 U/L AST (test code = 2218) 56 U/L ALT (test code = 2219) 61 U/L Yobany MandujanoLIPID [id number] 00:00:00* Test Item Value Reference Range Interpretation Comme nts CHOLESTEROL (test code = 2210) 242 MG/DL TRIGLYCERIDES (test code = 2232) 319 MG/DL HDL CHOLESTEROL (test code = 2220) 40 MG/DL CALC LDL CHOL (test code = 2237) 153 MG/DL RISK RATIO LDL/HDL (test cod e = 2238) 3.83 RATIO Yobany MandujanoTSH, THIRD [id number] 00:00:00* Test Item Value Reference Range Interpretation Comme [facility] TSH, THIRD GENERATION (test code = 2821) 3.860 UIU/ML Yobany MandujanoHEMOGLOBIN [id number] 00:00:00* Test Item Value Reference Range Interpretation Comme nts HEMOGLOBIN A1c (test code = 64687) 6.1 % Yobany MandujanoCBC W/AUTO [id number] 00:00:00* Test Item Value Reference Range Interpretation Comme nts WBC (test code = 1001) 9.1 K/UL RBC (test code = 1002) 4.49 M/UL HEMOGLOBIN (test code = 1003) 12.5 G/DL HEMATOCRIT (test code = 1004) 39.0 % MCV (test code = 1005) 86.9 fL MCH (test code = 1006) 27.8 PG MCHC (test code = 1007) 32.1 G/DL RDW (test code = 1038) 13.1 % NEUTROPHILS (test code = 1008) 54.3 % LYMPHOCYTES (test code = 1010) 34.9 % MONOCYTES (test code = 1011) 7.3 % EOSINOPHILS (test code = 1012) 2.6 % BASOPHILS (test code = 1013) 0.8 % IMMATURE GRANULOCYTES (test code = 1036) 0.1 % NUCLEATED RBCS (test code = 1065) 0.0 /100WBC'S PLATELET COUNT (test code = 1015) 308 K/UL ABSOLUTE NEUTROPHILS (test c ode = 1066) 4.96 K/UL ABSOLUTE LYMPHOCYTES (test c ode = 1067) 3.19 K/UL ABSOLUTE MONOCYTES (test cod e = 1068) 0.67 K/UL ABSOLUTE EOSINOPHILS (test c ode = 1040) 0.24 K/UL ABSOLUTE BASOPHILS (test cod e = 1069) 0.07 K/UL ABS IMMATURE GRANULOCYTES (t est code = 1020) 0.01 K/UL ABS NUCLEATED RBCS (test cod e = 50434) 0.00 K/UL Yobany Zia DelbertCOMPREHENSIVE METABOLIC [id number] 00:00:00* Test Item Value Reference Range Interpretation Comme nts GLUCOSE (test code = 2217) 90 MG/DL BUN (test code = 2208) 12 MG/DL CREATININE (test code = 2214) 0.98 MG/DL eGFR (2020 CKD-EPI) (test co de = 67401) 73 ML/MIN/1.73 CALC BUN/CREAT (test code = 2235) 12 RATIO SODIUM (test code = 2231) 137 MEQ/L POTASSIUM (test code = 2228) 4.4 MEQ/L CHLORIDE (test code = 2215) 103 MEQ/L CARBON DIOXIDE (test code = 2206) 18 MEQ/L CALCIUM (test code = 2209) 10.3 MG/DL PROTEIN, TOTAL (test code = 2229) 8.0 G/DL ALBUMIN (test code = 2201) 4.8 G/DL CALC GLOBULIN (test code = 2240) 3.2 G/DL CALC A/G RATIO (test code = 2234) 1.5 RATIO BILIRUBIN, TOTAL (test code = 2207) <0.2 MG/DL ALKALINE PHOSPHATASE (test code = 2204) 79 U/L AST (test code = 2218) 56 U/L ALT (test code = 2219) 61 U/L Yobany MandujanoLIPID [id number] 00:00:00* Test Item Value Reference Range Interpretation Comme nts CHOLESTEROL (test code = 2210) 242 MG/DL TRIGLYCERIDES (test code = 2232) 319 MG/DL HDL CHOLESTEROL (test code = 2220) 40 MG/DL CALC LDL CHOL (test code = 2237) 153 MG/DL RISK RATIO LDL/HDL (test cod e = 2238) 3.83 RATIO Yobany MandujanoTSH, THIRD [id number] 00:00:00* Test Item Value Reference Range Interpretation Comme nts TSH, THIRD GENERATION (test code = 2821) 3.860 UIU/ML Yobany MandujanoHEMOGLOBIN [id number] 00:00:00* Test Item Value Reference Range Interpretation Comme nts HEMOGLOBIN A1c (test code = 72240) 6.1 % Yobany MandujanoCBC W/AUTO [id number] 00:00:00* Test Item Value Reference Range Interpretation Comme nts WBC (test code = 1001) 9.1 K/UL RBC (test code = 1002) 4.49 M/UL HEMOGLOBIN (test code = 1003) 12.5 G/DL HEMATOCRIT (test code = 1004) 39.0 % MCV (test code = 1005) 86.9 fL MCH (test code = 1006) 27.8 PG MCHC (test code = 1007) 32.1 G/DL RDW (test code = 1038) 13.1 % NEUTROPHILS (test code = 1008) 54.3 % LYMPHOCYTES (test code = 1010) 34.9 % MONOCYTES (test code = 1011) 7.3 % EOSINOPHILS (test code = 1012) 2.6 % BASOPHILS (test code = 1013) 0.8 % IMMATURE GRANULOCYTES (test code = 1036) 0.1 % NUCLEATED RBCS (test code = 1065) 0.0 /100WBC'S PLATELET COUNT (test code = 1015) 308 K/UL ABSOLUTE NEUTROPHILS (test c ode = 1066) 4.96 K/UL ABSOLUTE LYMPHOCYTES (test c ode = 1067) 3.19 K/UL ABSOLUTE MONOCYTES (test cod e = 1068) 0.67 K/UL ABSOLUTE EOSINOPHILS (test c ode = 1040) 0.24 K/UL ABSOLUTE BASOPHILS (test cod e = 1069) 0.07 K/UL ABS IMMATURE GRANULOCYTES (t est code = 1020) 0.01 K/UL ABS NUCLEATED RBCS (test cod e = 31971) 0.00 K/UL Yobany MandujanoCOMPREHENSIVE METABOLIC [id number] 00:00:00* Test Item Value Reference Range Interpretation Comme nts GLUCOSE (test code = 2217) 90 MG/DL BUN (test code = 2208) 12 MG/DL CREATININE (test code = 2214) 0.98 MG/DL eGFR (2020 CKD-EPI) (test co de = 50540) 73 ML/MIN/1.73 CALC BUN/CREAT (test code = 2235) 12 RATIO SODIUM (test code = 2231) 137 MEQ/L POTASSIUM (test code = 2228) 4.4 MEQ/L CHLORIDE (test code = 2215) 103 MEQ/L CARBON DIOXIDE (test code = 2206) 18 MEQ/L CALCIUM (test code = 2209) 10.3 MG/DL PROTEIN, TOTAL (test code = 2229) 8.0 G/DL ALBUMIN (test code = 2201) 4.8 G/DL CALC GLOBULIN (test code = 2240) 3.2 G/DL CALC A/G RATIO (test code = 2234) 1.5 RATIO BILIRUBIN, TOTAL (test code = 2207) <0.2 MG/DL ALKALINE PHOSPHATASE (test code = 2204) 79 U/L AST (test code = 2218) 56 U/L ALT (test code = 2219) 61 U/L Yobany MandujanoLIPID [id number] 00:00:00* Test Item Value Reference Range Interpretation Comme nts CHOLESTEROL (test code = 2210) 242 MG/DL TRIGLYCERIDES (test code = 2232) 319 MG/DL HDL CHOLESTEROL (test code = 2220) 40 MG/DL CALC LDL CHOL (test code = 2237) 153 MG/DL RISK RATIO LDL/HDL (test cod e = 2238) 3.83 RATIO Yobany MandujanoTSH, THIRD [id number] 00:00:00* Test Item Value Reference Range Interpretation Comme nts TSH, THIRD GENERATION (test code = 2821) 3.860 UIU/ML Yobany MandujanoCOMPREHENSIVE METABOLIC [id number] 05:09:03* Test Item Value Reference Range Interpretation Comme nts GLUCOSE (test code = 2217) 113 MG/DL 70-99 H BUN (test code = 2207) 10 MG/DL 6-20 CREATININE (test code = 221) 0.50 MG/DL 0.60-1.30 L eGFR (2020 CKD-EPI) (test code = 39608) 119 ML/MIN/1.73 >60 CALC BUN/CREAT (test code = 2235) 20 RATIO 6-28 SODIUM (test code = 223) 141 MEQ/L 133-146 POTASSIUM (test code = 2228) 4.5 MEQ/L 3.5-5.4 CHLORIDE (test code = 2215) 105 MEQ/L 95-107 CARBON DIOXIDE (test code = 2206) 25 MEQ/L 19-31 CALCIUM (test code = 220) 9.4 MG/DL 8.5-10.5 PROTEIN, TOTAL (test code = 2228) 7.7 G/DL 6.1-8.3 ALBUMIN (test code = 220) 4.4 G/DL 3.5-5.2 CALC GLOBULIN (test code = 2240) 3.3 G/DL 1.9-3.7 CALC A/G RATIO (test code = 2234) 1.3 RATIO 1.0-2.6 BILIRUBIN, TOTAL (test code = 2206) 0.3 MG/DL See_Comment [Automated me ssage] The system which generated this result transmitted reference range: <=1.2. The reference range was not used to interpret this result as normal/abnormal. ALKALINE PHOSPHATASE (test code = 2204) 102 U/L 40-113 AST (test code = 2218) 60 U/L 9-40 H ALT (test code = 2219) 71 U/L 5-40 H UNLESS OTHERWISE INDICATED, ALL TESTING PERFORMED [facility] [address] [place] [id number] QUALITY OFFICER: TRINI STORY M.D. CLIA NUMBER [id number] [place]. [id number] COMPREHENSIVE METABOLIC [id number] 00:00:00* Test Item Value Reference Range Interpretation Comme nts GLUCOSE (test code = 2217) 113 MG/DL BUN (test code = 2208) 10 MG/DL CREATININE (test code = 2214) 0.50 MG/DL eGFR (2020 CKD-EPI) (test code = 99308) 119 ML/MIN/1.73 CALC BUN/CREAT (test code = 2235) 20 RATIO SODIUM (test code = 2231) 141 MEQ/L POTASSIUM (test code = 2228) 4.5 MEQ/L CHLORIDE (test code = 2215) 105 MEQ/L CARBON DIOXIDE (test code = 2206) 25 MEQ/L CALCIUM (test code = 2209) 9.4 MG/DL PROTEIN, TOTAL (test code = 2229) 7.7 G/DL ALBUMIN (test code = 2201) 4.4 G/DL CALC GLOBULIN (test code = 2240) 3.3 G/DL CALC A/G RATIO (test code = 2234) 1.3 RATIO BILIRUBIN, TOTAL (test code = 2207) 0.3 MG/DL ALKALINE PHOSPHATASE (test code = 2204) 102 U/L AST (test code = 2218) 60 U/L ALT (test code = 2219) 71 U/L Yobany MandujanoCOMPREHENSIVE METABOLIC [id number] 00:00:00* Test Item Value Reference Range Interpretation Comme nts GLUCOSE (test code = 2217) 113 MG/DL BUN (test code = 2208) 10 MG/DL CREATININE (test code = 2214) 0.50 MG/DL eGFR (2020 CKD-EPI) (test code = 86164) 119 ML/MIN/1.73 CALC BUN/CREAT (test code = 2235) 20 RATIO SODIUM (test code = 2231) 141 MEQ/L POTASSIUM (test code = 2228) 4.5 MEQ/L CHLORIDE (test code = 2215) 105 MEQ/L CARBON DIOXIDE (test code = 2206) 25 MEQ/L CALCIUM (test code = 2209) 9.4 MG/DL PROTEIN, TOTAL (test code = 2229) 7.7 G/DL ALBUMIN (test code = 2201) 4.4 G/DL CALC GLOBULIN (test code = 2240) 3.3 G/DL CALC A/G RATIO (test code = 2234) 1.3 RATIO BILIRUBIN, TOTAL (test code = 2207) 0.3 MG/DL ALKALINE PHOSPHATASE (test code = 2204) 102 U/L AST (test code = 2218) 60 U/L ALT (test code = 2219) 71 U/L [facility]any Mand[facility]anoREYNOL[facility]ITALPREHENS[facility] METABOLIC [id number] 00:00:00* Test Item Value Reference Range Interpretation Comme nts GLUCOSE (test code = 2217) 113 MG/DL BUN (test code = 2208) 10 MG/DL CREATININE (test code = 2214) 0.50 MG/DL eGFR (2020 CKD-EPI) (test code = 47805) 119 ML/MIN/1.73 CALC BUN/CREAT (test code = 2235) 20 RATIO SODIUM (test code = 2231) 141 MEQ/L POTASSIUM (test code = 2228) 4.5 MEQ/L CHLORIDE (test code = 2215) 105 MEQ/L CARBON DIOXIDE (test code = 2206) 25 MEQ/L CALCIUM (test code = 2209) 9.4 MG/DL PROTEIN, TOTAL (test code = 2229) 7.7 G/DL ALBUMIN (test code = 2201) 4.4 G/DL CALC GLOBULIN (test code = 2240) 3.3 G/DL CALC A/G RATIO (test code = 2234) 1.3 RATIO BILIRUBIN, TOTAL (test code = 2207) 0.3 MG/DL ALKALINE PHOSPHATASE (test code = 2204) 102 U/L AST (test code = 2218) 60 U/L ALT (test code = 2219) 71 U/L Yobany MandujanoREYNOLDS [facility]ITALPREHENSIVE METABOLIC [id number] 00:00:00* Test Item Value Reference Range Interpretation Comme nts GLUCOSE (test code = 2217) 113 MG/DL BUN (test code = 2208) 10 MG/DL CREATININE (test code = 2214) 0.50 MG/DL eGFR (2020 CKD-EPI) (test code = 91039) 119 ML/MIN/1.73 CALC BUN/CREAT (test code = 2235) 20 RATIO SODIUM (test code = 2231) 141 MEQ/L POTASSIUM (test code = 2228) 4.5 MEQ/L CHLORIDE (test code = 2215) 105 MEQ/L CARBON DIOXIDE (test code = 2206) 25 MEQ/L CALCIUM (test code = 2209) 9.4 MG/DL PROTEIN, TOTAL (test code = 2229) 7.7 G/DL ALBUMIN (test code = 2201) 4.4 G/DL CALC GLOBULIN (test code = 2240) 3.3 G/DL CALC A/G RATIO (test code = 2234) 1.3 RATIO BILIRUBIN, TOTAL (test code = 2207) 0.3 MG/DL ALKALINE PHOSPHATASE (test code = 2204) 102 U/L AST (test code = 2218) 60 U/L ALT (test code = 2219) 71 U/L Yobany Lizarraga ManchesterCOMPREHENSIVE METABOLIC [id number] 00:00:00* Test Item Value Reference Range Interpretation Comme nts GLUCOSE (test code = 2217) 113 MG/DL BUN (test code = 2208) 10 MG/DL CREATININE (test code = 2214) 0.50 MG/DL eGFR (2020 CKD-EPI) (test code = 15295) 119 ML/MIN/1.73 CALC BUN/CREAT (test code = 2235) 20 RATIO SODIUM (test code = 2231) 141 MEQ/L POTASSIUM (test code = 2228) 4.5 MEQ/L CHLORIDE (test code = 2215) 105 MEQ/L CARBON DIOXIDE (test code = 2206) 25 MEQ/L CALCIUM (test code = 2209) 9.4 MG/DL PROTEIN, TOTAL (test code = 2229) 7.7 G/DL ALBUMIN (test code = 2201) 4.4 G/DL CALC GLOBULIN (test code = 2240) 3.3 G/DL CALC A/G RATIO (test code = 2234) 1.3 RATIO BILIRUBIN, TOTAL (test code = 2207) 0.3 MG/DL ALKALINE PHOSPHATASE (test code = 2204) 102 U/L AST (test code = 2218) 60 U/L ALT (test code = 2219) 71 U/L Yobany F AustinCOMPREHENSIVE METABOLIC [id number] 00:00:00* Test Item Value Reference Range Interpretation Comme nts GLUCOSE (test code = 2217) 113 MG/DL BUN (test code = 2208) 10 MG/DL CREATININE (test code = 2214) 0.50 MG/DL eGFR (2020 CKD-EPI) (test code = 89064) 119 ML/MIN/1.73 CALC BUN/CREAT (test code = 2235) 20 RATIO SODIUM (test code = 223) 141 MEQ/L POTASSIUM (test code = 2228) 4.5 MEQ/L CHLORIDE (test code = 2215) 105 MEQ/L CARBON DIOXIDE (test code = 2206) 25 MEQ/L CALCIUM (test code = 2209) 9.4 MG/DL PROTEIN, TOTAL (test code = 2228) 7.7 G/DL ALBUMIN (test code = 2201) 4.4 G/DL CALC GLOBULIN (test code = 2240) 3.3 G/DL CALC A/G RATIO (test code = 2234) 1.3 RATIO BILIRUBIN, TOTAL (test code = 2206) 0.3 MG/DL ALKALINE PHOSPHATASE (test code = 2203) 102 U/L AST (test code = 2217) 60 U/L ALT (test code = 221) 71 U/L Yobany Lizarraga AustinHEMOGLOBIN [id number] 08:40:21* Test Item Value Reference Range Interpretation Comme [facility] HEMOGLOBIN A1c (test code = 54384) 7.8 % 4.2-5.6 H [employer] GUIDELINES FOR HGB A1C: PREDIABETES/INCREASED RISK . . . . . . . 5.7-6.4% DIAGNOSIS OF DIABETES . . . . . . . . . >=6.5% WITH CONFIRMATION OR APPROPRIATE SYMPTOMS NOTE: ASSAY MAY BE AFFECTED BY HEMOGLOBINOPATHIES (SICKLE CELL ANEMIA, S-C DISEASE, OTHERS) OR ARTIFICIALLY LOWERED BY DECREASED RED CELL SURVIVAL (HEMOLYTIC ANEMIAS, BLOOD LOSS, ETC.). CONSIDER ALTERNATE TESTING OR LABORATORY CONSULTATION. COMPREHENSIVE METABOLIC [id number] 06:31:39* Test Item Value Reference Range Interpretation Comme nts GLUCOSE (test code = 2217) 122 MG/DL 70-99 H BUN (test code = 8) 11 MG/DL 6-20 CREATININE (test code = 2214) 0.47 MG/DL 0.60-1.30 L eGFR (2020 CKD-EPI) (test code = 35355) 121 ML/MIN/1.73 >60 CALC BUN/CREAT (test code = 2234) 23 RATIO 6-28 SODIUM (test code = 2231) 141 MEQ/L 133-146 POTASSIUM (test code = 2228) 3.4 MEQ/L 3.5-5.4 L CHLORIDE (test code = 2215) 104 MEQ/L 95-107 CARBON DIOXIDE (test code = 2206) 22 MEQ/L 19-31 CALCIUM (test code = 2209) 9.1 MG/DL 8.5-10.5 PROTEIN, TOTAL (test code = 2229) 7.3 G/DL 6.1-8.3 ALBUMIN (test code = 2201) 4.2 G/DL 3.5-5.2 CALC GLOBULIN (test code = 2240) 3.1 G/DL 1.9-3.7 CALC A/G RATIO (test code = 2234) 1.4 RATIO 1.0-2.6 BILIRUBIN, TOTAL (test code = 2207) 0.3 MG/DL See_Comment [Automated me ssage] The system which generated this result transmitted reference range: <=1.2. The reference range was not used to interpret this result as normal/abnormal. ALKALINE PHOSPHATASE (test code = 2204) 118 U/L 40-113 H AST (test code = 2218) 71 U/L 9-40 H ALT (test code = 2219) 91 U/L 5-40 H UNLESS OTHERWISE INDICATED, ALL TESTING PERFORMED [facility] [address] [place] [address] QUALITY OFFICER: TRINI STORY M.D. CLIA NUMBER [id number] [facility] [place]. [id number] COMPREHENSIVE METABOLIC [id number] 00:00:00* Test Item Value Reference Range Interpretation Comme nts GLUCOSE (test code = 2217) 122 MG/DL BUN (test code = 2208) 11 MG/DL CREATININE (test code = 2214) 0.47 MG/DL eGFR (2020 CKD-EPI) (test code = 84744) 121 ML/MIN/1.73 CALC BUN/CREAT (test code = 2235) 23 RATIO SODIUM (test code = 2231) 141 MEQ/L POTASSIUM (test code = 2228) 3.4 MEQ/L CHLORIDE (test code = 2215) 104 MEQ/L CARBON DIOXIDE (test code = 2206) 22 MEQ/L CALCIUM (test code = 2209) 9.1 MG/DL PROTEIN, TOTAL (test code = 2229) 7.3 G/DL ALBUMIN (test code = 2201) 4.2 G/DL CALC GLOBULIN (test code = 2240) 3.1 G/DL CALC A/G RATIO (test code = 2234) 1.4 RATIO BILIRUBIN, TOTAL (test code = 2207) 0.3 MG/DL ALKALINE PHOSPHATASE (test code = 2204) 118 U/L AST (test code = 2218) 71 U/L ALT (test code = 2219) 91 U/L Yobany Lizarraga AustinHEMOGLOBIN [id number] 00:00:00* Test Item Value Reference Range Interpretation Comme nts HEMOGLOBIN A1c (test code = 30401) 7.8 % Yobany Lizarraga AustinCOMPREHENSIVE METABOLIC [id number] 00:00:00* Test Item Value Reference Range Interpretation Comme nts GLUCOSE (test code = 2217) 122 MG/DL BUN (test code = 2208) 11 MG/DL CREATININE (test code = 2214) 0.47 MG/DL eGFR (2020 CKD-EPI) (test code = 87907) 121 ML/MIN/1.73 CALC BUN/CREAT (test code = 2235) 23 RATIO SODIUM (test code = 2231) 141 MEQ/L POTASSIUM (test code = 2228) 3.4 MEQ/L CHLORIDE (test code = 2215) 104 MEQ/L CARBON DIOXIDE (test code = 2206) 22 MEQ/L CALCIUM (test code = 2209) 9.1 MG/DL PROTEIN, TOTAL (test code = 2229) 7.3 G/DL ALBUMIN (test code = 2201) 4.2 G/DL CALC GLOBULIN (test code = 2240) 3.1 G/DL CALC A/G RATIO (test code = 2234) 1.4 RATIO BILIRUBIN, TOTAL (test code = 2207) 0.3 MG/DL ALKALINE PHOSPHATASE (test code = 2204) 118 U/L AST (test code = 2218) 71 U/L ALT (test code = 2219) 91 U/L Yobany Lizarraga AustinHEMOGLOBIN [id number] 00:00:00* Test Item Value Reference Range Interpretation Comme nts HEMOGLOBIN A1c (test code = 31045) 7.8 % Yobany Lizarraga AustinCOMPREHENSIVE METABOLIC [id number] 00:00:00* Test Item Value Reference Range Interpretation Comme nts GLUCOSE (test code = 2217) 122 MG/DL BUN (test code = 2208) 11 MG/DL CREATININE (test code = 2214) 0.47 MG/DL eGFR (2020 CKD-EPI) (test code = 39697) 121 ML/MIN/1.73 CALC BUN/CREAT (test code = 2235) 23 RATIO SODIUM (test code = 2231) 141 MEQ/L POTASSIUM (test code = 2228) 3.4 MEQ/L CHLORIDE (test code = 2215) 104 MEQ/L CARBON DIOXIDE (test code = 2206) 22 MEQ/L CALCIUM (test code = 2209) 9.1 MG/DL PROTEIN, TOTAL (test code = 2229) 7.3 G/DL ALBUMIN (test code = 2201) 4.2 G/DL CALC GLOBULIN (test code = 2240) 3.1 G/DL CALC A/G RATIO (test code = 2234) 1.4 RATIO BILIRUBIN, TOTAL (test code = 2207) 0.3 MG/DL ALKALINE PHOSPHATASE (test code = 2204) 118 U/L AST (test code = 2218) 71 U/L ALT (test code = 2219) 91 U/L Yobany Lizarraga DelbertHEMOGLOBIN [id number] 00:00:00* Test Item Value Reference Range Interpretation Comme nts HEMOGLOBIN A1c (test code = 12609) 7.8 % Yobany MandujanoCOMPREHENSIVE METABOLIC [id number] 00:00:00* Test Item Value Reference Range Interpretation Comme nts GLUCOSE (test code = 2217) 122 MG/DL BUN (test code = 2208) 11 MG/DL CREATININE (test code = 2214) 0.47 MG/DL eGFR (2020 CKD-EPI) (test code = 15736) 121 ML/MIN/1.73 CALC BUN/CREAT (test code = 2235) 23 RATIO SODIUM (test code = 2231) 141 MEQ/L POTASSIUM (test code = 2228) 3.4 MEQ/L CHLORIDE (test code = 2215) 104 MEQ/L CARBON DIOXIDE (test code = 2206) 22 MEQ/L CALCIUM (test code = 2209) 9.1 MG/DL PROTEIN, TOTAL (test code = 2229) 7.3 G/DL ALBUMIN (test code = 2201) 4.2 G/DL CALC GLOBULIN (test code = 2240) 3.1 G/DL CALC A/G RATIO (test code = 2234) 1.4 RATIO BILIRUBIN, TOTAL (test code = 2207) 0.3 MG/DL ALKALINE PHOSPHATASE (test code = 2204) 118 U/L AST (test code = 2218) 71 U/L ALT (test code = 2219) 91 U/L Yobany Lizarraga AustinHEMOGLOBIN [id number] 00:00:00* Test Item Value Reference Range Interpretation Comme nts HEMOGLOBIN A1c (test code = 56480) 7.8 % Yobany Lizarraga AustinCOMPREHENSIVE METABOLIC [id number] 00:00:00* Test Item Value Reference Range Interpretation Comme nts GLUCOSE (test code = 2217) 122 MG/DL BUN (test code = 2208) 11 MG/DL CREATININE (test code = 2214) 0.47 MG/DL eGFR (2020 CKD-EPI) (test code = 08960) 121 ML/MIN/1.73 CALC BUN/CREAT (test code = 2235) 23 RATIO SODIUM (test code = 2231) 141 MEQ/L POTASSIUM (test code = 2228) 3.4 MEQ/L CHLORIDE (test code = 2215) 104 MEQ/L CARBON DIOXIDE (test code = 2206) 22 MEQ/L CALCIUM (test code = 2209) 9.1 MG/DL PROTEIN, TOTAL (test code = 2229) 7.3 G/DL ALBUMIN (test code = 2201) 4.2 G/DL CALC GLOBULIN (test code = 2240) 3.1 G/DL CALC A/G RATIO (test code = 2234) 1.4 RATIO BILIRUBIN, TOTAL (test code = 2207) 0.3 MG/DL ALKALINE PHOSPHATASE (test code = 2204) 118 U/L AST (test code = 2218) 71 U/L ALT (test code = 2219) 91 U/L Yobany Lizarraga AustinHEMOGLOBIN [id number] 00:00:00* Test Item Value Reference Range Interpretation Comme nts HEMOGLOBIN A1c (test code = 25466) 7.8 % Yobany Lizarraga AustinCOMPREHENSIVE METABOLIC [id number] 00:00:00* Test Item Value Reference Range Interpretation Comme nts GLUCOSE (test code = 2217) 122 MG/DL BUN (test code = 2208) 11 MG/DL CREATININE (test code = 2214) 0.47 MG/DL eGFR (2020 CKD-EPI) (test code = 81048) 121 ML/MIN/1.73 CALC BUN/CREAT (test code = 2235) 23 RATIO SODIUM (test code = 223) 141 MEQ/L POTASSIUM (test code = 2228) 3.4 MEQ/L CHLORIDE (test code = 2215) 104 MEQ/L CARBON DIOXIDE (test code = 2206) 22 MEQ/L CALCIUM (test code = 2209) 9.1 MG/DL PROTEIN, TOTAL (test code = 2228) 7.3 G/DL ALBUMIN (test code = 2200) 4.2 G/DL CALC GLOBULIN (test code = 2240) 3.1 G/DL CALC A/G RATIO (test code = 2234) 1.4 RATIO BILIRUBIN, TOTAL (test code = 2206) 0.3 MG/DL ALKALINE PHOSPHATASE (test code = 2203) 118 U/L AST (test code = 2217) 71 U/L ALT (test code = 2218) 91 U/L Yobany MandujanoHEMOGLOBIN [id number] 00:00:00* Test Item Value Reference Range Interpretation Comme [facility] HEMOGLOBIN A1c (test code = 69583) 7.8 % Yobany Lizarraga AustinALBUMIN/CREATININE RATIO, URINE, [id number] 05:00:14* Test Item Value Reference Range Interpretation Comme nts CREATININE, URINE, CONC. (test code = 2072) 53.6 MG/DL NOT ESTAB ALBUMIN, URINE, RANDOM (test code = 47282) 0.4 MG/DL NOT ESTAB CALC ALBUMIN/CREAT, RND (test code = 94740) 7 MG/G <30 Note: Albumin/Cr eatinine ratio reference interval reflects ADA and NKF guidelines. UNLESS OTHERWISE INDICATED, ALL TESTING PERFORMED ATCL[facility]ICAL [facility] [address] [place] [id number] QUALITY OFFICER: TRINI STORY M.D. CLIA NUMBER [id number] [facility] [place]. [id number] HEMOGLOBIN [id number] 03:44:08* Test Item Value Reference Range Interpretation Comme nts HEMOGLOBIN A1c (test code = 09397) 10.0 % 4.2-5.6 H [employer] GUIDELINES FOR HGB A1C: PREDIABETES/INCREASED RISK . . . . . . . 5.7-6.4% DIAGNOSIS OF DIABETES . . . . . . . . . >=6.5% WITH CONFIRMATION OR APPROPRIATE SYMPTOMS NOTE: ASSAY MAY BE AFFECTED BY HEMOGLOBINOPATHIES (SICKLE CELL ANEMIA, S-C DISEASE, OTHERS) OR ARTIFICIALLY LOWERED BY DECREASED RED CELL SURVIVAL (HEMOLYTIC ANEMIAS, BLOOD LOSS, ETC.). CONSIDER ALTERNATE TESTING OR LABORATORY CONSULTATION. LIPID [id number] 03:28:24* Test Item Value Reference Range Interpretation Comme nts CHOLESTEROL (test code = 2210) 197 MG/DL <200 TRIGLYCERIDES (test code = 2232) 304 MG/DL <150 H HDL CHOLESTEROL (test code = 2220) 28 MG/DL >39 L CALC LDL CHOL (test code = 2237) 126 MG/DL <100 H NOTE: CALCULATED LDL IS BASED ON JIMMY-VICENTE METHOD WHICHINCLUDES ADJUSTABLE TRIGLYCERIDE:VLDL CHOLESTEROL RATIO.THIS FACTOR VARIES BY MEASURED TRIGLYCERIDE AND NON-HDLCHOLESTEROL CONCENTRATIONS WITH INCREASED CALCULATED LDL SEENIN HIGHER TRIGLYCERIDE OR LOWER NON-HDL SPECIMENS. FOR MOREINFORMATION, SEE CLIENT ANNOUNCEMENT AT [email or web address] [email or web address] RATIO LDL/HDL (test code = 2238) 4.50 RATIO <3.22 H COMPREHENSIVE METABOLIC [id number] 03:28:24* Test Item Value Reference Range Interpretation Comme nts GLUCOSE (test code = 2217) 391 MG/DL 70-99 H BUN (test code = 2208) 11 MG/DL 6-20 CREATININE (test code = 2214) 0.53 MG/DL 0.60-1.30 L eGFR (2020 CKD-EPI) (test code = 74368) 118 ML/MIN/1.73 >60 CALC BUN/CREAT (test code = 2235) 21 RATIO 6-28 SODIUM (test code = 223) 132 MEQ/L 133-146 L POTASSIUM (test code = 2228) 4.7 MEQ/L 3.5-5.4 CHLORIDE (test code = 2215) 95 MEQ/L 95-107 CARBON DIOXIDE (test code = 2206) 23 MEQ/L 19-31 CALCIUM (test code = 2209) 9.9 MG/DL 8.5-10.5 PROTEIN, TOTAL (test code = 2228) 7.8 G/DL 6.1-8.3 ALBUMIN (test code = 220) 4.5 G/DL 3.5-5.2 CALC GLOBULIN (test code = 2240) 3.3 G/DL 1.9-3.7 CALC A/G RATIO (test code = 2234) 1.4 RATIO 1.0-2.6 BILIRUBIN, TOTAL (test code = 2207) 0.4 MG/DL See_Comment [Automated me ssage] The system which generated this result transmitted reference range: <=1.2. The reference range was not used to interpret this result as normal/abnormal. ALKALINE PHOSPHATASE (test code = 2204) 118 U/L 40-113 H AST (test code = 2218) 221 U/L 9-40 H ALT (test code = 2219) 312 U/L 5-40 H HEMOGLOBIN [id number] 00:00:00* Test Item Value Reference Range Interpretation Comme [facility] HEMOGLOBIN A1c (test code = 24589) 10.0 % Yobany Lizarraga [place] [id number] 00:00:00* Test Item Value Reference Range Interpretation Comme nts CHOLESTEROL (test code = 2210) 197 MG/DL TRIGLYCERIDES (test code = 2232) 304 MG/DL HDL CHOLESTEROL (test code = 2220) 28 MG/DL CALC LDL CHOL (test code = 2237) 126 MG/DL RISK RATIO LDL/HDL (test cod e = 2238) 4.50 RATIO Yobany MandujanoCOMPREHENSIVE METABOLIC [id number] 00:00:00* Test Item Value Reference Range Interpretation Comme nts GLUCOSE (test code = 2217) 391 MG/DL BUN (test code = 2208) 11 MG/DL CREATININE (test code = 2214) 0.53 MG/DL eGFR (2020 CKD-EPI) (test code = 63072) 118 ML/MIN/1.73 CALC BUN/CREAT (test code = 2235) 21 RATIO SODIUM (test code = 2231) 132 MEQ/L POTASSIUM (test code = 2228) 4.7 MEQ/L CHLORIDE (test code = 2215) 95 MEQ/L CARBON DIOXIDE (test code = 2206) 23 MEQ/L CALCIUM (test code = 2209) 9.9 MG/DL PROTEIN, TOTAL (test code = 2229) 7.8 G/DL ALBUMIN (test code = 2201) 4.5 G/DL CALC GLOBULIN (test code = 2240) 3.3 G/DL CALC A/G RATIO (test code = 2234) 1.4 RATIO BILIRUBIN, TOTAL (test code = 2207) 0.4 MG/DL ALKALINE PHOSPHATASE (test code = 2204) 118 U/L AST (test code = 2218) 221 U/L ALT (test code = 2219) 312 U/L Yobany MandujanoMICROALBUMIN/CREATININE, RANDOM AND [id number] 00:00:00* Test Item Value Reference Range Interpretation Comme [facility] CREATININE, URINE, CONC. (te st code = 2072) 53.6 MG/DL ALBUMIN, URINE, RANDOM (test code = 81030) 0.4 MG/DL CALC ALBUMIN/CREAT, RND (kyara t code = 39215) 7 MG/G Yobany MandujanoHEMOGLOBIN [id number] 00:00:00* Test Item Value Reference Range Interpretation Comme [facility] HEMOGLOBIN A1c (test code = 41680) 10.0 % Yobany MandujanoLIPID [id number] 00:00:00* Test Item Value Reference Range Interpretation Comme nts CHOLESTEROL (test code = 2210) 197 MG/DL TRIGLYCERIDES (test code = 2232) 304 MG/DL HDL CHOLESTEROL (test code = 2220) 28 MG/DL CALC LDL CHOL (test code = 2237) 126 MG/DL RISK RATIO LDL/HDL (test cod e = 2238) 4.50 RATIO Yobany MandujanoCOMPREHENSIVE METABOLIC [id number] 00:00:00* Test Item Value Reference Range Interpretation Comme nts GLUCOSE (test code = 2217) 391 MG/DL BUN (test code = 2208) 11 MG/DL CREATININE (test code = 2214) 0.53 MG/DL eGFR (2020 CKD-EPI) (test code = 09897) 118 ML/MIN/1.73 CALC BUN/CREAT (test code = 2235) 21 RATIO SODIUM (test code = 2231) 132 MEQ/L POTASSIUM (test code = 2228) 4.7 MEQ/L CHLORIDE (test code = 2215) 95 MEQ/L CARBON DIOXIDE (test code = 2206) 23 MEQ/L CALCIUM (test code = 2209) 9.9 MG/DL PROTEIN, TOTAL (test code = 2229) 7.8 G/DL ALBUMIN (test code = 2201) 4.5 G/DL CALC GLOBULIN (test code = 2240) 3.3 G/DL CALC A/G RATIO (test code = 2234) 1.4 RATIO BILIRUBIN, TOTAL (test code = 2207) 0.4 MG/DL ALKALINE PHOSPHATASE (test code = 2204) 118 U/L AST (test code = 2218) 221 U/L ALT (test code = 2219) 312 U/L Yobany MandujanoMICROALBUMIN/CREATININE, RANDOM AND [id number] 00:00:00* Test Item Value Reference Range Interpretation Comme nts CREATININE, URINE, CONC. (te st code = 2072) 53.6 MG/DL ALBUMIN, URINE, RANDOM (test code = 88561) 0.4 MG/DL CALC ALBUMIN/CREAT, RND (kyara t code = 83861) 7 MG/G Yobany MandujanoHEMOGLOBIN [id number] 00:00:00* Test Item Value Reference Range Interpretation Comme [facility] HEMOGLOBIN A1c (test code = 02551) 10.0 % Yobany MandujanoLIPID [id number] 00:00:00* Test Item Value Reference Range Interpretation Comme nts CHOLESTEROL (test code = 2210) 197 MG/DL TRIGLYCERIDES (test code = 2232) 304 MG/DL HDL CHOLESTEROL (test code = 2220) 28 MG/DL CALC LDL CHOL (test code = 2237) 126 MG/DL RISK RATIO LDL/HDL (test cod e = 2238) 4.50 RATIO Yobany MandujanoCOMPREHENSIVE METABOLIC [id number] 00:00:00* Test Item Value Reference Range Interpretation Comme nts GLUCOSE (test code = 2217) 391 MG/DL BUN (test code = 2208) 11 MG/DL CREATININE (test code = 2214) 0.53 MG/DL eGFR (2020 CKD-EPI) (test code = 28604) 118 ML/MIN/1.73 CALC BUN/CREAT (test code = 2235) 21 RATIO SODIUM (test code = 2231) 132 MEQ/L POTASSIUM (test code = 2228) 4.7 MEQ/L CHLORIDE (test code = 2215) 95 MEQ/L CARBON DIOXIDE (test code = 2206) 23 MEQ/L CALCIUM (test code = 2209) 9.9 MG/DL PROTEIN, TOTAL (test code = 2229) 7.8 G/DL ALBUMIN (test code = 2201) 4.5 G/DL CALC GLOBULIN (test code = 2240) 3.3 G/DL CALC A/G RATIO (test code = 2234) 1.4 RATIO BILIRUBIN, TOTAL (test code = 2207) 0.4 MG/DL ALKALINE PHOSPHATASE (test code = 2204) 118 U/L AST (test code = 2218) 221 U/L ALT (test code = 2219) 312 U/L Yobany MandujanoMICROALBUMIN/CREATININE, RANDOM AND [id number] 00:00:00* Test Item Value Reference Range Interpretation Comme nts CREATININE, URINE, CONC. (te st code = 2072) 53.6 MG/DL ALBUMIN, URINE, RANDOM (test code = 22798) 0.4 MG/DL CALC ALBUMIN/CREAT, RND (kyara t code = 14848) 7 MG/G Yobany MandujanoHEMOGLOBIN [id number] 00:00:00* Test Item Value Reference Range Interpretation Comme brando HEMOGLOBIN A1c (test code = 63808) 10.0 % Yobany MandujanoLIPID [id number] 00:00:00* Test Item Value Reference Range Interpretation Comme nts CHOLESTEROL (test code = 2210) 197 MG/DL TRIGLYCERIDES (test code = 2232) 304 MG/DL HDL CHOLESTEROL (test code = 2220) 28 MG/DL CALC LDL CHOL (test code = 2237) 126 MG/DL RISK RATIO LDL/HDL (test cod e = 2238) 4.50 RATIO Yobany MandujanoCOMPREHENSIVE METABOLIC [id number] 00:00:00* Test Item Value Reference Range Interpretation Comme nts GLUCOSE (test code = 2217) 391 MG/DL BUN (test code = 2208) 11 MG/DL CREATININE (test code = 2214) 0.53 MG/DL eGFR (2020 CKD-EPI) (test code = 67882) 118 ML/MIN/1.73 CALC BUN/CREAT (test code = 2235) 21 RATIO SODIUM (test code = 2231) 132 MEQ/L POTASSIUM (test code = 2228) 4.7 MEQ/L CHLORIDE (test code = 2215) 95 MEQ/L CARBON DIOXIDE (test code = 2206) 23 MEQ/L CALCIUM (test code = 2209) 9.9 MG/DL PROTEIN, TOTAL (test code = 2229) 7.8 G/DL ALBUMIN (test code = 2201) 4.5 G/DL CALC GLOBULIN (test code = 2240) 3.3 G/DL CALC A/G RATIO (test code = 2234) 1.4 RATIO BILIRUBIN, TOTAL (test code = 2207) 0.4 MG/DL ALKALINE PHOSPHATASE (test code = 2204) 118 U/L AST (test code = 2218) 221 U/L ALT (test code = 2219) 312 U/L Yobany MandujanoMICROALBUMIN/CREATININE, RANDOM AND [id number] 00:00:00* Test Item Value Reference Range Interpretation Comme nts CREATININE, URINE, CONC. (te st code = 2072) 53.6 MG/DL ALBUMIN, URINE, RANDOM (test code = 07062) 0.4 MG/DL CALC ALBUMIN/CREAT, RND (kyara t code = 40063) 7 MG/G Yobany MandujanoHEMOGLOBIN [id number] 00:00:00* Test Item Value Reference Range Interpretation Comme nts HEMOGLOBIN A1c (test code = 93417) 10.0 % Yobany MandujanoLIPID [id number] 00:00:00* Test Item Value Reference Range Interpretation Comme nts CHOLESTEROL (test code = 2210) 197 MG/DL TRIGLYCERIDES (test code = 2232) 304 MG/DL HDL CHOLESTEROL (test code = 2220) 28 MG/DL CALC LDL CHOL (test code = 2237) 126 MG/DL RISK RATIO LDL/HDL (test cod e = 2238) 4.50 RATIO Yobany MandujanoCOMPREHENSIVE METABOLIC [id number] 00:00:00* Test Item Value Reference Range Interpretation Comme nts GLUCOSE (test code = 2217) 391 MG/DL BUN (test code = 2208) 11 MG/DL CREATININE (test code = 2214) 0.53 MG/DL eGFR (2020 CKD-EPI) (test code = 05122) 118 ML/MIN/1.73 CALC BUN/CREAT (test code = 2235) 21 RATIO SODIUM (test code = 2231) 132 MEQ/L POTASSIUM (test code = 2228) 4.7 MEQ/L CHLORIDE (test code = 2215) 95 MEQ/L CARBON DIOXIDE (test code = 2206) 23 MEQ/L CALCIUM (test code = 2209) 9.9 MG/DL PROTEIN, TOTAL (test code = 2229) 7.8 G/DL ALBUMIN (test code = 2201) 4.5 G/DL CALC GLOBULIN (test code = 2240) 3.3 G/DL CALC A/G RATIO (test code = 2234) 1.4 RATIO BILIRUBIN, TOTAL (test code = 2207) 0.4 MG/DL ALKALINE PHOSPHATASE (test code = 2204) 118 U/L AST (test code = 2218) 221 U/L ALT (test code = 2219) 312 U/L Yobany MandujanoMICROALBUMIN/CREATININE, RANDOM AND [id number] 00:00:00* Test Item Value Reference Range Interpretation Comme nts CREATININE, URINE, CONC. (te st code = 2072) 53.6 MG/DL ALBUMIN, URINE, RANDOM (test code = 21866) 0.4 MG/DL CALC ALBUMIN/CREAT, RND (kyara t code = 54988) 7 MG/G Yobany MandujanoHEMOGLOBIN [id number] 00:00:00* Test Item Value Reference Range Interpretation Comme nts HEMOGLOBIN A1c (test code = 49755) 10.0 % Yobany MandujanoLIPID [id number] 00:00:00* Test Item Value Reference Range Interpretation Comme nts CHOLESTEROL (test code = 2210) 197 MG/DL TRIGLYCERIDES (test code = 2232) 304 MG/DL HDL CHOLESTEROL (test code = 2220) 28 MG/DL CALC LDL CHOL (test code = 2237) 126 MG/DL RISK RATIO LDL/HDL (test cod e = 2238) 4.50 RATIO Yobany MandujanoCOMPREHENSIVE METABOLIC [id number] 00:00:00* Test Item Value Reference Range Interpretation Comme nts GLUCOSE (test code = 2217) 391 MG/DL BUN (test code = 2208) 11 MG/DL CREATININE (test code = 2214) 0.53 MG/DL eGFR (2020 CKD-EPI) (test code = 45148) 118 ML/MIN/1.73 CALC BUN/CREAT (test code = 2235) 21 RATIO SODIUM (test code = 2231) 132 MEQ/L POTASSIUM (test code = 2228) 4.7 MEQ/L CHLORIDE (test code = 2215) 95 MEQ/L CARBON DIOXIDE (test code = 2206) 23 MEQ/L CALCIUM (test code = 2209) 9.9 MG/DL PROTEIN, TOTAL (test code = 2229) 7.8 G/DL ALBUMIN (test code = 2201) 4.5 G/DL CALC GLOBULIN (test code = 2240) 3.3 G/DL CALC A/G RATIO (test code = 2234) 1.4 RATIO BILIRUBIN, TOTAL (test code = 2207) 0.4 MG/DL ALKALINE PHOSPHATASE (test code = 2204) 118 U/L AST (test code = 2218) 221 U/L ALT (test code = 2219) 312 U/L Yobany F ManchesterMICROALBUMIN/CREATININE, RANDOM AND [id number] 00:00:00* Test Item Value Reference Range Interpretation Comme nts CREATININE, URINE, CONC. (te st code = 2072) 53.6 MG/DL ALBUMIN, URINE, RANDOM (test code = 38644) 0.4 MG/DL CALC ALBUMIN/CREAT, RND (kyara t code = 85321) 7 MG/G Yobany Zia Delbert Notes Date/Time Note [facility]2024-07-16 00:00:00 [facility]24-06[facility]25 [facility]
[2025-06-15] MEDS ORDERED: NA CHLORIDE 0.9% 1,000 ML ONE ×2 (19:00→20:55)
[2025-06-15 19:37] LABS: Absolute Lymphocytes (CBC) 3.5 K/uL (0.7-4.9); Hematocrit 43.2 % (36.0-45.0); Hemoglobin 14.8 g/dL (12.0-15.0); MCH 29.2 pg (27.0-35.0); MCHC 34.3 g/dL (32.0-36.0); MCV 85.3 fL (80-100); MPV 11.1 fL (7.6-11.3); Nucleated RBC Absolute Count 0.0 (0-0); Nucleated Red Blood Cells % 0.1 % (0-0); RBC Red Blood Cell Count 5.06 M/uL (3.86-4.86); White Blood Count 8.20 thou/uL (4.3-10.9)
[2025-06-15 20:08] LABS: Sqamous Epithelial <5 /HPF (None Seen); Urine Culture Reflex Order REFLEXED; Urine Microscopic Reflex YN ORDER UMIC
[2025-06-15 20:38] LABS: ALT/SGPT 68.0 U/L (13-56); Albumin 3.6 g/dL (3.4-5.0); Albumin/Globulin Ratio 0.9 (1.1-1.8); Alkaline Phosphatase 146.0 U/L (45-117); Anion Gap 17.8 mEq/L (5.0-15.0); BUN Blood Urea Nitrogen 13.0 mg/dL (7-18); Globulin 4.0 g/dL (2.3-3.5); Lipase 50.0 U/L (13-75)
[2025-06-15 20:39] LABS: AST/SGOT 38.0 U/L (15-37); Potassium 3.8 mEq/L (3.5-5.1)
[2025-06-15 20:40] LABS: Glucose Level 457.0 mg/dL (74-106)
[2025-06-15] MEDS ORDERED: INSULIN REGULAR (HUMAN) 100 UNIT/ML ONE (20:54)
[2025-06-15 22:30] LABS: PCO2, Venous Blood Gas 40 mmHg (41-51); PH, Venous Blood Gas 7.32 (7.32-7.42); PO2, Venous Blood Gas 57 mmHg (25-40)
[2025-06-15 22:31] LABS: Base Excess, VBG -5.5 mmol/L (-2.0-3.0); HCO3, Venous Blood Gas 20.6 mmol/L (21.0-29.0); O2 Saturation, VBG 86.6 % (40.0-70.0)
[2025-06-15 23:43] LABS: Anion Gap 16.4 mEq/L (5.0-15.0); BUN Blood Urea Nitrogen 11.0 mg/dL (7-18); Glucose Level 317.0 mg/dL (74-106); Potassium 3.4 mEq/L (3.5-5.1)
[2025-06-16] MEDS ORDERED: INSULIN REGULAR (HUMAN) 100 UNIT/ML ONE (00:18)
[2025-06-16] MEDS ORDERED: NA CHLORIDE 0.9% 1,000 ML ONE (00:19)
[2025-06-16 02:02] LABS: Anion Gap 13.5 mEq/L (5.0-15.0); BUN Blood Urea Nitrogen 9.0 mg/dL (7-18); Glucose Level 233.0 mg/dL (74-106)
[2025-06-16 02:04] LABS: Potassium 3.5 mEq/L (3.5-5.1)
--- NOTE | 2025-06-16 02:18 | EDPHYS ---
Physician Documentation [facility] Name: Judy Cho Age: 45 yrs Sex: Female : 1980 Arrival Date: 06/15/2025 Time: 18:19 Bed 4 Private MD: ED Physician Chuck Blackwood HPI: 06/15 18:46 This 45 yrs old Female presents to ER via Unassigned with complaints of High sb4 Blood Sugar. 18:47 Patient reports elevated blood sugar over the past few weeks. States it has typically sb4 been in the 200s or 300s but she checked it today and it was 512. She reports some blurry vision but denies any nausea, vomiting, abdominal pain, fever, chills. Does report a history of type 2 diabetes, only medication is metformin which she ran out of about 2 weeks ago. 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 - Infectious Disease History:: Denies. - Social history:: Smoking status: Patient denies any tobacco usage or history of. ROS: 18:47 Constitutional: Negative for fever, chills, and weight loss, sb4 18:47 Eyes: Positive for blurry vision, 18:47 All other systems are negative, Exam: 18:47 Constitutional: This is a well developed, well nourished patient who is awake, alert, sb4 and in no acute distress. Head/Face: Normocephalic, atraumatic. Eyes: Extra-ocular motions intact. Periorbital areas with no swelling, redness, or edema. ENT: Mucous membranes moist. Cardiovascular: Regular rate and rhythm with a normal S1 and S2. Respiratory: No increased work of breathing, no retractions or nasal flaring. Abdomen/GI: Soft, non-tender, no distension. Skin: Warm, dry with normal turgor. Normal color with no rashes, no lesions, and no evidence of cellulitis. Vital Signs: 18:47 BP 154 / 91; Pulse 75; Resp 18; Temp 97.2(TE); Pulse Ox 98% on R/A; Weight 83.91 kg; cm10 Height 5 ft. 6 in. ; Pain 0/10; 19:36 BP 151 / 89; Pulse 77; Resp 18 S; Pulse Ox 100% on R/A; kt5 20:51 BP 142 / 92; Pulse 77; Resp 18 S; Pulse Ox 100% ; kt5 21:38 BP 139 / 92; Pulse 85; Resp 18 S; Pulse Ox 100% on R/A; kt5 22:44 BP 132 / 81; Pulse 88; Resp 19 S; Pulse Ox 98% on R/A; kt5 06/16 00:12 BP 153 / 101; Pulse 66; Resp 16 S; Pulse Ox 99% on R/A; kt5 00:36 BP 148 / 96; Pulse 75; Resp 16 S; Pulse Ox 99% on R/A; kt5 02:08 BP 149 / 94; Pulse 71; Resp 16 S; Pulse Ox 98% on R/A; kt5 02:09 BP 149 / 94; Pulse 68; Resp 17; Temp 97.2; Pulse Ox 98% ; Pain 0/10; bm8 03:27 BP 154 / 91; Pulse 64; Resp 17; Pulse Ox 99% ; Pain 0/10; bm8 06/15 18:47 Body Mass Index 29.86 (83.91 kg, 167.64 cm) cm10 06/15 18:47 Pain Scale: Adult cm10 02:09 Pain Scale: Adult bm8 03:27 Pain Scale: Adult bm8 Star Coma Score: 04:06 Eye Response: spontaneous(4). Motor Response: obeys commands(6). Verbal Response: bm8 oriented(5). Total: 15. MDM: 06/15 18:27 Medical Screening Exam initiated sb4 18:49 Differential diagnosis: DKA, hyperglycemia. sb4 06/16 00:03 Data reviewed: vital signs, nurses notes. Consideration of Admission/Observation kb Patient was admitted/placed on observation. Escalation of care including admission/observation considered. Management of patient was discussed with the following: Hospitalist: LAVON Lemus accepts pt for admission. Historians other than the Patient: Spouse/Significant Other: spouse. Counseling: I had a detailed discussion with the patient and/or guardian regarding the historical points, exam findings, and any diagnostic results supporting the discharge/admit diagnosis, lab results, the need for further work-up and treatment in the hospital. ED course: Gap initially 14. Gave 2L NS and 5 units of insulin. Repeat gap 13. Discussed case with Dr Blackwood who recommended 10 units of insulin, a 3rd liter of NS and admit for blood sugar control. . 06/15 18:46 Order name: CBC with Diff; Complete Time: 19:39 sb4 06/15 18:46 Order name: CMP; Complete Time: 00:58 sb4 06/15 18:46 Order name: Lipase; Complete Time: 00:58 sb4 06/15 18:46 Order name: UA Rfx Devon Cult if indicated; Complete Time: 00:58 sb4 06/15 18:58 Order name: Glucose, Ancillary Testing; Complete Time: 18:59 EDMS 06/16 00:55 Order name: Urine Culture EDMS 06/16 00:56 Order name: Glucose, Ancillary Testing; Complete Time: 00:58 EDMS 06/16 00:57 Order name: Basic Metabolic Panel; Complete Time: 00:58 EDMS 06/16 00:57 Order name: VBG Venous Blood Gas; Complete Time: 00:58 EDMS 06/16 00:58 Order name: BMP: collect after 3L of NS infuses; Complete Time: 02:15 kb 06/16 03:27 Order name: CBC with Automated Diff EDMS 06/16 03:27 Order name: CBC with Automated Diff EDMS 06/16 03:27 Order name: CBC with Automated Diff EDMS 06/16 03:27 Order name: Comprehensive Metabolic Panel EDMS 06/16 03:27 Order name: Comprehensive Metabolic Panel; Complete Time: 08:22 EDMS 06/16 03:27 Order name: Comprehensive Metabolic Panel EDMS 06/16 03:27 Order name: Comprehensive Metabolic Panel EDMS 06/16 03:27 Order name: Comprehensive Metabolic Panel EDMS 06/16 03:27 Order name: Magnesium EDMS 06/16 03:27 Order name: Magnesium; Complete Time: 08:22 EDMS 06/16 03:27 Order name: Magnesium EDMS 06/16 03:27 Order name: Magnesium EDMS 06/16 03:27 Order name: Magnesium EDMS 06/16 03:30 Order name: Hemoglobin A1c EDMS 06/16 03:30 Order name: Hemoglobin A1c; Complete Time: 08:22 EDMS 06/16 03:30 Order name: Hemoglobin A1c EDMS 06/15 18:46 Order name: IV Saline Lock; Complete Time: 19:35 sb4 06/15 18:46 Order name: Labs collected and sent; Complete Time: 19:35 sb4 06/15 18:46 Order name: Accucheck; Complete Time: 19:09 sb4 06/15 19:42 Order name: Misc. Order: RECOLLECT GREEN TOP ; Complete Time: 19:54 rv1 06/15 20:44 Order name: Finger Stick; Complete Time: 20:50 lg3 Administered Medications: 06/15 19:35 Drug: NS 0.9% IV 1000 ml IV at 1 bolus Per protocol; to be given as a bolus over 60 kt5 minutes Route: IV; Rate: 1 bolus; Site: right antecubital; 20:33 Follow up: Response: No adverse reaction; IV Status: Completed infusion; IV Intake: kt5 1000ml 20:54 CANCELLED (Physician Discretion): ns 0.9% 500 ml 500 ml IV at 1 bolus once; to be given kb as a bolus over 30 minutes 20:59 Drug: NS 0.9% IV 1000 ml IV at 1000 ml once; to be given as a bolus over 60 minutes bm8 Route: IV; Rate: 1000 ml; Site: right antecubital; 06/16 00:16 Follow up: Response: No adverse reaction; IV Status: Completed infusion; IV Intake: lg3 1000ml 06/15 20:59 Drug: Insulin Regular Human IVP 5 units IVP once {Co-Signature: [email or web address] (Soumya Mcqueen RN).} bm8 Route: IVP; Site: right antecubital; 06/16 00:16 Follow up: Response: No adverse reaction lg3 00:30 Drug: Insulin Regular Human IVP 10 units IVP once {Co-Signature: lg3 (Soumya Mcqueen RN).} bm8 Route: IVP; Site: right antecubital; 01:56 Follow up: Response: No adverse reaction lg3 00:30 Drug: NS 0.9% IV 1000 ml IV at 1000 ml once; to be given as a bolus over 60 minutes bm8 Route: IV; Rate: 1000 ml; Site: right antecubital; 01:56 Follow up: Response: No adverse reaction; IV Status: Completed infusion; IV Intake: lg3 1000ml Point of Care Testing: Blood Glucose: 06/15 18:47 Blood Glucose: High (>450 mg/dL); cm10 Ranges: Critical Glucose Levels:Adult <50 mg/dl or >400 mg/dl <40 mg/dl or >180 mg/dl Disposition: 06/16 01:24 Co-signature as Attending Physician, Chuck Blackwood MD I agree with the assessment sp4 and plan of care. I reviewed the patient's care provided by Advanced Practice Provider \T\ agree w/ the diagnosis \T\ care plan. I personally saw the pt \T\ performed a substantive portion of the visit, incldng all aspects of the (History/Exam/Medical Decision Making). 08:23 Chart complete. sb4 Disposition Summary: 06/16/25 02:18 Hospitalization Ordered Notes: Hospitalization Status: Observation sp4 Provider: Jong Van sp4 Location: Telemetry/MedSurg (observation) sp4 Condition: Stable sp4 Problem: new sp4 Symptoms: have improved sp4 Bed/Room Type: Standard sp4 Room Assignment: 407(06/16/25 03:35) kl Diagnosis - Type 1 diabetes mellitus with hyperglycemia sp4 - Acute diabetic ketoacidosis, Acute elevated anion gap acidosis, moderate sp4 dehydration, uncontrolled diabetes mellitus type 1 Discharge Instructions: - Discharge Summary Sheet sb4 Forms: - Medication Reconciliation Form sp4 - SBAR form sp4 - Leadership Thank You Letter sp4 Prescriptions: - Metformin 1,000 mg Oral tablet - take 1 tablet ORAL route once daily; 20 tablet; Refills: 0, Product Selection kb Permitted Critical care time excluding procedures: 02:16 Critical care time: Bedside Care: 36 minutes, Consultation: 12 minutes, Family sp4 Intervention: 12 minutes. Total time: 60 minutes Signatures: Dispatcher [employer] EDYanique Helms, ROSE-Matheus ROSE-Chana Zapata RN Soumya Hazel, RN RN lg3 Ariane Amin PA-C PA-C sb4 Mickie Bhakta rv1 Chuck Blackwood MD MD sp4 Carol Tyson RN RN cm10 Juma Pena, RN RN bm8 Tatiana Mohamud RN CHAVO kt5 Soumya Mcqueen RN lg3 Corrections: (The following items were deleted from the chart) 06/15 18:46 18:46 CBC+H.LAB.BRZ ordered. EDMS EDMS 18:46 18:46 COMPREHENSIVE METABOLIC PANEL+C.LAB.BRZ ordered. EDMS EDMS 18:46 18:46 LIPASE+C.LAB.BRZ ordered. EDMS EDMS 18:46 18:46 UA Rfx Devon Cult if indicated+U.LAB.BRZ ordered. EDMS EDMS 18:50 18:47 Patient reports elevated blood sugar over the past few months. States it has sb4 typically been in the 200s or 300s but she checked it today and it was 512. She reports some blurry vision but denies any nausea, vomiting, abdominal pain, fever, chills. Does report a history of type 2 diabetes, only medication is metformin which she reports compliance with. sb4 20:54 20:47 NS 0.9% IV 500 ml 500 ml IV at 1 bolus once; to be given as a bolus over 30 kb minutes ordered. kb 06/16 01:13 00:58 BASIC METABOLIC PANEL+C.LAB.BRZ ordered. EDMS EDMS 01:13 00:58 Venous Blood Gas+RC.LAB.BRZ ordered. EDMS EDMS 03:35 02:18 sp4 kl
--- NOTE | 2025-06-16 02:18 | ER ---
Nurse's Notes [facility] Name: Judy Cho Age: 45 yrs Sex: Female : 1980 Arrival Date: 06/15/2025 Time: 18:19 Bed 4 Private MD: Diagnosis: Type 1 diabetes mellitus with hyperglycemia;Acute diabetic ketoacidosis, Acute elevated anion gap acidosis, moderate dehydration, uncontrolled diabetes mellitus type 1 Presentation: 06/15 18:47 Chief complaint: Patient states: elevated blood sugar for the last 3-4 weeks. Stopped cm10 taking metformin 15 days ago. BGL at home 512. BGL in triage reading "HI". Coronavirus screen: Client denies travel out of the [place] in the last 14 days. Ebola Screen: Patient denies travel to an Ebola-affected area in the 21 days before illness onset. Initial Sepsis Screen: Does the patient meet any 2 criteria? No. Patient's initial sepsis screen is negative. Does the patient have a suspected source of infection? No. Patient's initial sepsis screen is negative. Risk Assessment: Do you want to hurt yourself or someone else? Patient reports no desire to harm self or others. Onset of symptoms was June 15, 2025. 18:47 Method Of Arrival: Ambulatory cm10 18:47 Acuity: MIAH 3 cm10 Triage Assessment: 18:49 General: Appears in no apparent distress. comfortable, Behavior is calm, cooperative. cm10 Pain: Denies pain. Neuro: No deficits noted. Level of Consciousness is awake, alert, obeys commands, Oriented to person, place, time, situation, Appropriate for age. Respiratory: No deficits noted. Airway is patent Respiratory effort is even, unlabored, Respiratory pattern is regular, symmetrical. 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 - Infectious Disease History:: Denies. - Social history:: Smoking status: Patient denies any tobacco usage or history of. Screenin:36 [facility] ED Fall Risk Assessment (Adult) History of falling in the last 3 months, kt5 including since admission No falls in past 3 months (0 pts) Confusion or Disorientation No (0 pts) Intoxicated or Sedated No (0 pts) Impaired Gait No (0 pts) Mobility Assist Device Used No (0 pt) Altered Elimination No (0 pt) Score/Fall Risk Level 0 - 2 = Low Risk Oriented to surroundings, Maintained a safe environment, Educated pt \\T\\ family on fall prevention, incl call for assistance when getting out of bed, Assessed \\T\\ reinforced patient's understanding of fall precautions. Abuse screen: Denies threats or abuse. Denies injuries from another. Nutritional screening: No deficits noted. Tuberculosis screening: No symptoms or risk factors identified. Assessment: 19:36 General: Reports pt states she has been out of her metformin for 1 week. General: kt5 Appears in no apparent distress. comfortable, Behavior is calm, cooperative. Pain: Complains of pain in pelvis Pain does not radiate. Pain currently is 3 out of 10 on a pain scale. Quality of pain is described as pressure. Neuro: No deficits noted. Jacinto Agitation-Sedation Scale (RASS): 0 - Alert and Calm Level of Consciousness is awake, alert, obeys commands, Oriented to person, place, time. Cardiovascular: No deficits noted. Reports None Heart tones S1 S2 present Capillary refill < 3 seconds is brisk Patient's skin is warm and dry. Pulses are all present. Rhythm is regular Chest pain is denied. Cardiovascular: No deficits noted. Reports None Heart tones S1 S2 Capillary refill < 3 seconds is brisk Patient's skin is warm and dry. Pulses are all present. Rhythm is regular Chest pain is denied. Respiratory: No deficits noted. Airway is patent. GI: No deficits noted. No signs and/or symptoms were reported involving the gastrointestinal system. : per pt c/o of "itching in her vagina Reports burning with urination, since 1.5 weks urinary frequency, since 1.5 weeks. EENT: No deficits noted. No signs and/or symptoms were reported regarding the EENT system. Derm: No deficits noted. No signs and/or symptoms reported regarding the dermatologic system. Musculoskeletal: No deficits noted. No signs and/or symptoms reported regarding the musculoskeletal system. 19:51 GI: Abdomen is flat, non-distended, Bowel sounds present X 4 quads. Abd is soft and non kt5 tender X 4 quads. Abd is non tender. Derm: Skin is intact, is healthy with good turgor, Skin is dry, Skin is pink, warm \\T\\ dry. normal, Skin temperature is warm. Musculoskeletal: Circulation, motion, and sensation intact. Capillary refill < 3 seconds, Range of motion: intact in all extremities. 20:32 Reassessment: Patient appears in no apparent distress at this time. No changes from kt5 previously documented assessment. Patient is alert, oriented x 3, equal unlabored respirations, skin warm/dry/pink. Patient denies pain at this time. Patient states feeling better. Patient states symptoms have improved. 21:38 Reassessment: Patient appears in no apparent distress at this time. No changes from kt5 previously documented assessment. Patient is alert, oriented x 3, equal unlabored respirations, skin warm/dry/pink. Patient denies pain at this time. Patient states feeling better. Patient states symptoms have improved. 22:28 Reassessment: Patient appears in no apparent distress at this time. No changes from kt5 previously documented assessment. Patient is alert, oriented x 3, equal unlabored respirations, skin warm/dry/pink. Patient denies pain at this time. Patient states feeling better. Patient states symptoms have improved. 23:33 Reassessment: Patient appears in no apparent distress at this time. No changes from kt5 previously documented assessment. Patient is alert, oriented x 3, equal unlabored respirations, skin warm/dry/pink. Patient denies pain at this time. Patient states feeling better. Patient states symptoms have improved. 06/16 00:36 Reassessment: Patient appears in no apparent distress at this time. No changes from kt5 previously documented assessment. Patient is alert, oriented x 3, equal unlabored respirations, skin warm/dry/pink. Patient denies pain at this time. Patient states feeling better. Patient states symptoms have improved. Pain: Denies pain. 02:08 Reassessment: Patient appears in no apparent distress at this time. No changes from kt5 previously documented assessment. Patient is alert, oriented x 3, equal unlabored respirations, skin warm/dry/pink. Patient denies pain at this time. Patient states feeling better. Patient states symptoms have improved. Pain: Denies pain. 03:27 Reassessment: Patient appears in no apparent distress at this time. No changes from kt5 previously documented assessment. Patient is alert, oriented x 3, equal unlabored respirations, skin warm/dry/pink. Patient denies pain at this time. Patient states feeling better. Patient states symptoms have improved. Pain: Denies pain. Vital Signs: 06/15 18:47 BP 154 / 91; Pulse 75; Resp 18; Temp 97.2(TE); Pulse Ox 98% on R/A; Weight 83.91 kg; cm10 Height 5 ft. 6 in. ; Pain 0/10; 19:36 BP 151 / 89; Pulse 77; Resp 18 S; Pulse Ox 100% on R/A; kt5 20:51 BP 142 / 92; Pulse 77; Resp 18 S; Pulse Ox 100% ; kt5 21:38 BP 139 / 92; Pulse 85; Resp 18 S; Pulse Ox 100% on R/A; kt5 22:44 BP 132 / 81; Pulse 88; Resp 19 S; Pulse Ox 98% on R/A; kt5 06/16 00:12 BP 153 / 101; Pulse 66; Resp 16 S; Pulse Ox 99% on R/A; kt5 00:36 BP 148 / 96; Pulse 75; Resp 16 S; Pulse Ox 99% on R/A; kt5 02:08 BP 149 / 94; Pulse 71; Resp 16 S; Pulse Ox 98% on R/A; kt5 02:09 BP 149 / 94; Pulse 68; Resp 17; Temp 97.2; Pulse Ox 98% ; Pain 0/10; bm8 03:27 BP 154 / 91; Pulse 64; Resp 17; Pulse Ox 99% ; Pain 0/10; bm8 06/15 18:47 Body Mass Index 29.86 (83.91 kg, 167.64 cm) cm10 06/15 18:47 Pain Scale: Adult cm10 02:09 Pain Scale: Adult bm8 03:27 Pain Scale: Adult bm8 Vitals: 06/15 19:36 Cardiac Rhythm Assessment Regular. kt5 Elias Coma Score: 06/16 04:06 Eye Response: spontaneous(4). Motor Response: obeys commands(6). Verbal Response: bm8 oriented(5). Total: 15. ED Course: 06/15 18:23 Patient arrived in ED. im 18:23 Ariane Amin PA-C is PHCP. sb4 18:23 Evaristo Ramirez MD is Attending Physician. sb4 18:48 Triage completed. cm10 18:49 Arm band placed on right wrist. Patient placed in waiting room. cm10 19:06 Soumya Mcqueen, RN is Primary Nurse. lg3 19:35 UA Rfx Devon Cult if indicated Sent. kt5 19:35 CBC with Diff Sent. kt5 19:36 Patient has correct armband on for positive identification. Allergy band placed. Placed kt5 in gown. Bed in low position. Call light in reach. Side rails up X 1. Adult w/ patient. 19:36 CMP Sent. kt5 19:36 Lipase Sent. kt5 19:36 Inserted saline lock: 20 gauge in right antecubital area, using aseptic technique. kt5 19:51 Client placed on continuous cardiac and pulse oximetry monitoring. NIBP monitoring kt5 applied. technical maintenance technician on. Door closed. Noise minimized. Warm blanket given. Pillow given. Family accompanied patient. 20:00 PHCP role handed off by Ariane Amin PA-C kb 20:00 Yanique Rocha FNP-C is PHCP. kb 23:57 Attending Physician role handed off by Evaristo Ramirez MD sp4 23:57 Chuck Blackwood MD is Attending Physician. sp4 06/16 02:17 Jong Van MD is Hospitalizing Provider. sp4 04:06 Provided Education on: need for admission. bm8 04:06 No provider procedures requiring assistance completed. Patient admitted, IV remains in bm8 place. Administered Medications: 06/15 19:35 Drug: NS 0.9% IV 1000 ml IV at 1 bolus Per protocol; to be given as a bolus over 60 kt5 minutes Route: IV; Rate: 1 bolus; Site: right antecubital; 20:33 Follow up: Response: No adverse reaction; IV Status: Completed infusion; IV Intake: kt5 1000ml 20:54 CANCELLED (Physician Discretion): ns 0.9% 500 ml 500 ml IV at 1 bolus once; to be given kb as a bolus over 30 minutes 20:59 Drug: NS 0.9% IV 1000 ml IV at 1000 ml once; to be given as a bolus over 60 minutes bm8 Route: IV; Rate: 1000 ml; Site: right antecubital; 06/16 00:16 Follow up: Response: No adverse reaction; IV Status: Completed infusion; IV Intake: lg3 1000ml 06/15 20:59 Drug: Insulin Regular Human IVP 5 units IVP once {Co-Signature: lg3 (Suomya Mcqueen RN).} bm8 Route: IVP; Site: right antecubital; 06/16 00:16 Follow up: Response: No adverse reaction lg3 00:30 Drug: Insulin Regular Human IVP 10 units IVP once {Co-Signature: lg3 (Soumya Mcqueen RN).} bm8 Route: IVP; Site: right antecubital; 01:56 Follow up: Response: No adverse reaction lg3 00:30 Drug: NS 0.9% IV 1000 ml IV at 1000 ml once; to be given as a bolus over 60 minutes bm8 Route: IV; Rate: 1000 ml; Site: right antecubital; :56 Follow up: Response: No adverse reaction; IV Status: Completed infusion; IV Intake: lg3 1000ml Medication: 06/15 19:36 VIS not applicable for this client. kt5 Point of Care Testing: Blood Glucose: 18:47 Blood Glucose: High (>450 mg/dL); cm10 Ranges: Intake: 20:33 IV: 1000ml; Total: 1000ml. kt5 06/16 00:16 IV: 1000ml; Total: 2000ml. lg3 01:56 IV: 1000ml; Total: 3000ml. lg3 Outcome: 02:18 Decision to Hospitalize by Provider. sp4 04:06 Discharged to home ambulatory, via wheelchair, bm8 04:06 Condition: stable 04:06 Instructed on follow up and referral plans. the need for admit, no drinking with medication, no driving heavy equipment, medication usage, Demonstrated understanding of instructions, follow-up care, medications, 04:32 Patient left the ED. bm8 Signatures: Yanique Rocha, ROSE-C ROSE-Soumya Conrad, RN RN lg3 Ariane Amin PA-C PA-C Chuck Santos MD MD sp4 Dee Dee Talbert Clarissa RN RN cm10 Juma Pena RN RN bm8 Tatiana Mohamud RN RN kt5 Soumya Mcqueen RN lg3 Corrections: (The following items were deleted from the chart) 06/15 19:48 19:36 Cardiovascular: No deficits noted. Reports None Heart tones S1 S2 Capillary kt5 refill < 3 seconds is brisk Patient's skin is warm and dry. Pulses are all present. Rhythm is regular Chest pain is denied kt5 19:48 19:36 Cardiovascular: No deficits noted. Reports None Heart tones S1 S2 present kt5 Capillary refill < 3 seconds is brisk Patient's skin is warm and dry. Pulses are all present. Rhythm is regular Chest pain is denied kt5 19:52 19:36 General: Appears in no apparent distress. comfortable, Behavior is calm, kt5 cooperative, kt5 19:54 19:46 Cardiovascular: kt5 lg3 19:54 19:46 Respiratory: Airway Respiratory effort is even, unlabored, Respiratory pattern is lg3 regular, symmetrical, kt5 06/16 04:07 04:06 Provided Education on: post er care. bm8 bm8
[2025-06-16] MEDS ORDERED: ACETAMINOPHEN 325 MG TABLET PO PRN (03:21)
[2025-06-16] MEDS ORDERED: ONDANSETRON 4 MG/2 ML VIAL IV PRN (03:21)
--- NOTE | 2025-06-16 03:36 | P.HP ---
Certification for Inpatient Patient admitted to: Inpatient With expected LOS: >2 Midnights Patient will require the following post-hospital care: None Practitioner: I am a practitioner with admitting privileges, knowledge of patient current condition, hospital course, and medical plan of care. Services: Services provided to patient in accordance with Admission requirements found in Title 42 Section 412.3 of the Code of Federal Regulations <BaudilioMissael sky - Last Filed: 06/16/25 03:52> Patient History Date of Service: 06/16/25 Reason for admission: Hyperglycemia. History of Present Illness: This a pleasant 45-year-old female predominantly Kyrgyz-speaking only, with past medical history of type 2 diabetes mellitus, essential hypertension, who reports to the ER complaining of elevated blood sugar of 512. Patient states she ran out of her medication metformin 1000 mg p.o. twice daily for past 2 weeks. States she has not been taking any medication for her diabetes. Patient states her Accu-Chek at home has been in the 200s, or 300s, states when she checked it yesterday it was 512 which then prompted her to report to ER. She reports some blurry vision but denies any nausea, vomiting, abdominal pain, chills, fever, chest pain, or shortness of breath. Patient initial serum glucose upon arrival to ER was 457, repeat 317, repeat 232. Patient initial anion gap 17.8, repeat 16.4, repeat 13.5 closing, after receiving some insulin and fluids in ER. During admission assessment, patient was fully awake, alert and oriented x 3, no signs or symptoms noted and mentioned of hyperglycemic at this time. <MariahMissael - Last Filed: 06/16/25 03:52> Date of Service: 06/16/25 <Barbie Josue - Last Filed: 06/16/25 12:45> Allergies No Known Allergies Allergy (Unverified 06/16/25 05:04) Review of Systems 10-point ROS is otherwise unremarkable <Missael Lemus - Last Filed: 06/16/25 03:52> Physical Examination - Physical Exam General: Alert, In no apparent distress, Oriented x3, Cooperative HEENT: Atraumatic, Normocephalic, PERRLA, Mucous membr. moist/pink Neck: Supple, 2+ carotid pulse no bruit, No LAD, Without JVD or thyroid abnormality Respiratory: Clear to auscultation bilaterally, Normal air movement Cardiovascular: No edema, Normal pulses, Regular rate/rhythm, Normal S1 S2, Abnormal S3, No gallops, No rubs, No murmurs Capillary refill: <2 Seconds Gastrointestinal: Normal bowel sounds, Soft and benign, Non-distended, W/out hepatomegaly, No ascites, No tenderness, No masses, No rebound, No guarding Musculoskeletal: No clubbing, No swelling, No contractures, No erythema, No tenderness, No warmth Integumentary: No rashes, No breakdown, No significant lesion, No tenderness/swelling, No erythema, No warmth, No cyanosis Neurological: Normal gait, Normal speech, Normal strength at 5/5 x4 extr, Normal tone, Sensation intact, Cranial nerves 3-12 intact, Normal reflexes 2+, Normal affect Lymphatics: No axilla or inguinal lymphadenopathy - Studies Laboratory Data (last 24 hrs) 06/16/25 06/15/25 06/15/25 01:37 22:43 21:54 WBC Hgb Hct Plt Count Sodium 136 137 Cancelled Potassium 3.5 3.4 L Cancelled BUN 9 11 Cancelled Creatinine 0.55 0.56 Cancelled Glucose 233 H 317 H Cancelled Total Bilirubin AST ALT Alkaline Phosphatase Lipase 06/15/25 06/15/25 19:55 19:25 WBC 8.20 Hgb 14.8 Hct 43.2 Plt Count 214 Sodium 134 L Potassium 3.8 BUN 13 Creatinine 0.77 Glucose 457 H* Total Bilirubin 0.3 AST 38 H ALT 68 H Alkaline Phosphatase 146 H Lipase 50 <Missael Lemus - Last Filed: 06/16/25 03:52> - Studies Laboratory Data (last 24 hrs) 06/16/25 06/15/25 06/15/25 01:37 22:43 21:54 WBC Hgb Hct Plt Count Sodium 136 137 Cancelled Potassium 3.5 3.4 L Cancelled BUN 9 11 Cancelled Creatinine 0.55 0.56 Cancelled Glucose 233 H 317 H Cancelled Total Bilirubin AST ALT Alkaline Phosphatase Lipase 06/15/25 06/15/25 19:55 19:25 WBC 8.20 Hgb 14.8 Hct 43.2 Plt Count 214 Sodium 134 L Potassium 3.8 BUN 13 Creatinine 0.77 Glucose 457 H* Total Bilirubin 0.3 AST 38 H ALT 68 H Alkaline Phosphatase 146 H Lipase 50 <Barbie Josue - Last Filed: 06/16/25 12:45> Female Exam - Breasts Breasts: Normal configuration <Missael Lemus - Last Filed: 06/16/25 03:52> Assessment and Plan - Plan Patient is a 45-year-old female who reports to ER due to hyperglycemia initial blood sugar 512, patient admitted to inpatient. (1)Hyperglycemia. -Restarted on metformin 1000 mg p.o. twice daily. -Lantus 10 units subcu daily. -IV NS at 125 mL/ hr. -ACHS/moderate sliding scale coverage. -Order an A1c to evaluate patient current diabetic status. (2)Essential hypertension. - Lisinopril 20 mg p.o. daily. -Hydralazine 10 mg IV as needed every 6 hours for systolic of 160 or greater and diastolic of 90 or greater. (3)Explained the entire treatment plan to the patient, and significant other present at the bedside, solicit questions answered and voiced understanding. Discharge Plan: Home Plan to discharge in: 72 Hours - Advance Directives Does patient have a Living Will: No Does patient have a Durable POA for Healthcare: No - Code Status/Comfort Care Code Status Assessed: Yes Code Status: Full Code Critical Care: No Time Spent Managing Pts Care (In Minutes): 55 <Missael Lemus - Last Filed: 06/16/25 03:52> Date of Service: 06/16/25 <Barbie Josue - Last Filed: 06/16/25 12:45>
[2025-06-16] MEDS ORDERED: HYDRALAZINE HCL 20 MG/ML VIAL IV PRN (03:54)
[2025-06-16] MEDS: NA CHLORIDE 0.9% 1,000 ML IV SCH (04:45)
[2025-06-16 05:03] VITALS: BMI 25.8
[2025-06-16] MEDS: INSULIN REGULAR (HUMAN) 100 UNIT/ML SQ SCH (07:30)
[2025-06-16 07:56] LABS: ALT/SGPT 66.0 U/L (13-56); AST/SGOT 39.0 U/L (15-37); Albumin 3.3 g/dL (3.4-5.0); Albumin/Globulin Ratio 1.0 (1.1-1.8); Alkaline Phosphatase 101.0 U/L (45-117); Anion Gap 11.8 mEq/L (5.0-15.0); BUN Blood Urea Nitrogen 6.0 mg/dL (7-18); Globulin 3.4 g/dL (2.3-3.5); Glucose Level 291.0 mg/dL (74-106); Magnesium 1.5 mg/dL (1.6-2.4); Potassium 3.8 mEq/L (3.5-5.1)
[2025-06-16] MEDS: PNEUMOCOCCAL VACCINE 0.5 ML IMVAC ONE (08:00)
[2025-06-16] MEDS: ENOXAPARIN 40 MG/0.4 ML SQ SCH (08:53)
[2025-06-16] MEDS: INSULIN GLARGINE 100 UNIT/ML SQ SCH (09:00)
[2025-06-16] MEDS ORDERED: GLUCAGON 1 MG/VIAL IM PRN (12:39)
[2025-06-16] MEDS ORDERED: D50W 25 GM/50 ML SYRINGE IV PRN (12:39)
[2025-06-16] MEDS: INSULIN 70/30 100 UNITS/ML SQ SCH (16:30)
--- NOTE | 2025-06-16 16:39 | P.PN ---
Date of Service: 06/16/25 Patient seen and examined. She has no new complaint. Blood sugar readings are elevated. Hemoglobin A1c 11.6. Patient is uninsured. Will change subcutaneous Lantus insulin to a more affordable Novolin 70/30. Continue to monitor fingerstick glucose reading to estimate Novolin 70/30 discharge dose. Continue home antihypertensives.
[2025-06-17 06:46] LABS: Absolute Lymphocytes (CBC) 2.4 K/uL (0.7-4.9); Hematocrit 38.7 % (36.0-45.0); Hemoglobin 13.2 g/dL (12.0-15.0); MCH 28.6 pg (27.0-35.0); MCHC 34.0 g/dL (32.0-36.0); MCV 84.1 fL (80-100); MPV 10.6 fL (7.6-11.3); Nucleated RBC Absolute Count 0.0 (0-0); Nucleated Red Blood Cells % 0.0 % (0-0); RBC Red Blood Cell Count 4.61 M/uL (3.86-4.86); White Blood Count 6.50 thou/uL (4.3-10.9)
[2025-06-17 07:05] LABS: ALT/SGPT 76.0 U/L (13-56); Albumin 3.1 g/dL (3.4-5.0); Albumin/Globulin Ratio 0.8 (1.1-1.8); Alkaline Phosphatase 92.0 U/L (45-117); Anion Gap 9.8 mEq/L (5.0-15.0); BUN Blood Urea Nitrogen 6.0 mg/dL (7-18); Globulin 3.8 g/dL (2.3-3.5); Glucose Level 283.0 mg/dL (74-106)
[2025-06-17 07:06] LABS: AST/SGOT 30.0 U/L (15-37); Magnesium 1.7 mg/dL (1.6-2.4); Potassium 3.8 mEq/L (3.5-5.1)
[2025-06-17] MEDS: MAGNESIUM SULFATE 1 gm IVPB 1 GM/100 ML BAG IV ONE (08:32)
[2025-06-17] MEDS: POTASSIUM CL SA 10 MEQ TAB PO ONE (08:33)
[2025-06-17 10:33] VITALS: O2SAT 99
[2025-06-17 12:13] VITALS: BP 112/62; TEMP 98.2
--- NOTE | 2025-06-17 13:16 | P.DS ---
Admission Date: 06/16/25 Discharge Date: 06/17/25 Disposition: ROUTINE DISCHARGE Discharge Condition: GOOD Reason for Admission: Hyperglycemia. Brief History of Present Illness: This a pleasant 45-year-old female predominantly [place]an-speaking only, with past medical history of type 2 diabetes mellitus, essential hypertension, who reports to the ER complaining of elevated blood sugar of 512. Patient states she ran out of her medication metformin 1000 mg p.o. twice daily for past 2 weeks. States she has not been taking any medication for her diabetes. Patient states her Accu-Chek at home has been in the 200s, or 300s, states when she checked it yesterday it was 512 which then prompted her to report to ER. She reports some blurry vision but denies any nausea, vomiting, abdominal pain, chills, fever, chest pain, or shortness of breath. Patient initial serum glucose upon arrival to ER was 457, repeat 317, repeat 232. Patient initial anion gap 17.8, repeat 16.4, repeat 13.5 closing, after receiving some insulin and fluids in ER. During admission assessment, patient was fully awake, alert and oriented x 3, no signs or symptoms noted and mentioned of hyperglycemic at this time. Hospital Course: Physical Examination - Physical Exam General: Alert, In no apparent distress, Oriented x3, Cooperative HEENT: Atraumatic, Normocephalic, PERRLA, Mucous membr. moist/pink Neck: Supple, 2+ carotid pulse no bruit, No LAD, Without JVD or thyroid abnormality Respiratory: Clear to auscultation bilaterally, Normal air movement Cardiovascular: No edema, Normal pulses, Regular rate/rhythm, Normal S1 S2, Abnormal S3, No gallops, No rubs, No murmurs Capillary refill: <2 Seconds Gastrointestinal: Normal bowel sounds, Soft and benign, Non-distended, W/out hepatomegaly, No ascites, No tenderness, No masses, No rebound, No guarding Musculoskeletal: No clubbing, No swelling, No contractures, No erythema, No tenderness, No warmth Integumentary: No rashes, No breakdown, No significant lesion, No tenderness/swelling, No erythema, No warmth, No cyanosis Neurological: Normal gait, Normal speech, Normal strength at 5/5 x4 extr, Normal tone, Sensation intact, Cranial nerves 3-12 intact, Normal reflexes 2+, Normal affect Lymphatics: No axilla or inguinal lymphadenopathy - Studies Laboratory Data (last 24 hrs) 06/16/25 06/15/25 06/15/25 01:37 22:43 21:54 WBC Hgb Hct Plt Count Sodium 136 137 Cancelled Potassium 3.5 3.4 L Cancelled BUN 9 11 Cancelled Creatinine 0.55 0.56 Cancelled Glucose 233 H 317 H Cancelled Total Bilirubin AST ALT Alkaline Phosphatase Lipase 06/15/25 06/15/25 19:55 19:25 WBC 8.20 Hgb 14.8 Hct 43.2 Plt Count 214 Sodium 134 L Potassium 3.8 BUN 13 Creatinine 0.77 Glucose 457 H* Total Bilirubin 0.3 AST 38 H ALT 68 H Alkaline Phosphatase 146 H Lipase 50 - Studies Laboratory Data (last 24 hrs) 06/16/25 06/15/25 06/15/25 01:37 22:43 21:54 WBC Hgb Hct Plt Count Sodium 136 137 Cancelled Potassium 3.5 3.4 L Cancelled BUN 9 11 Cancelled Creatinine 0.55 0.56 Cancelled Glucose 233 H 317 H Cancelled Total Bilirubin AST ALT Alkaline Phosphatase Lipase 06/15/25 06/15/25 19:55 19:25 WBC 8.20 Hgb 14.8 Hct 43.2 Plt Count 214 Sodium 134 L Potassium 3.8 BUN 13 Creatinine 0.77 Glucose 457 H* Total Bilirubin 0.3 AST 38 H ALT 68 H Alkaline Phosphatase 146 H Lipase 50 Assessment and Plan - Plan Patient is a 45-year-old female who reports to ER due to hyperglycemia initial blood sugar 512, patient admitted to inpatient. (1)Hyperglycemia. -Improved. -Restarted on metformin 1000 mg p.o. twice daily. -Start 70/30 Novolin, diabetic supplies prescribed -Stop IV fluids and tolerating diabetic diet -ACHS/moderate sliding scale coverage. -A1c at 12.2 -Follow-up with primary care doctor (2)Essential hypertension. - Lisinopril 20 mg p.o. daily. -Hydralazine 10 mg IV as needed every 6 hours for systolic of 160 or greater and diastolic of 90 or greater. (3)Explained the entire treatment plan to the patient, and significant other present at the bedside, solicit questions answered and voiced understanding. Discharge Plan: Home Plan to discharge in: 72 Hours - Advance Directives Does patient have a Living Will: No Does patient have a Durable POA for Healthcare: No - Code Status/Comfort Care Code Status Assessed: Yes Code Status: Full Code Critical Care: No Time spent on the encounter, including patient evaluation, history taking, physical exam, medical decision making, coordination of care, and documentation, was 35 minutes. Time includes direct [id number] interaction with the patient and indirect time spent reviewing records, ordering tests, and discussing the care plan. Vital Signs/Physical Exam: Temp Pulse Resp BP Pulse Ox 98.2 F 69 14 112/62 100 06/17/25 12:00 06/17/25 12:00 06/17/25 12:00 06/17/25 12:00 06/17/25 12:00 Laboratory Data at Discharge: WBC 6.50 thou/uL (4.3-10.9) 06/17/25 06:15 Hgb 13.2 g/dL (12.0-15.0) 06/17/25 06:15 Hct 38.7 % (36.0-45.0) 06/17/25 06:15 Plt Count 192 thou/uL (152-406) 06/17/25 06:15 Sodium 138 mEq/L (136-145) 06/17/25 06:15 Potassium 3.8 mEq/L (3.5-5.1) 06/17/25 06:15 BUN 6 mg/dL (7-18) L 06/17/25 06:15 Creatinine 0.52 mg/dL (0.55-1.02) L 06/17/25 06:15 Glucose 283 mg/dL (74-106) H 06/17/25 06:15 Phosphorus 2.9 mg/dL (2.5-4.9) 06/17/25 06:15 Magnesium 1.7 mg/dL (1.6-2.4) 06/17/25 06:15 Total Bilirubin 0.4 mg/dL (0.2-1.0) 06/17/25 06:15 AST 30 U/L (15-37) 06/17/25 06:15 ALT 76 U/L (13-56) H 06/17/25 06:15 Alkaline Phosphatase 92 U/L (45-117) 06/17/25 06:15 Lipase 50 U/L (13-75) 06/15/25 19:55 Home Medications: Metformin HCl 1,000 mg PO BID 06/16/25 Alcohol Antiseptic Pads [Alcohol Swabs] 1 each TP ACHS 30 Days #1 box 06/17/25 Blood Sugar Diagnostic [Glucose Test Strip] 1 each MC ACHS 30 Days #1 box 06/17/25 Blood-Glucose Meter [Relion All-in-One] 1 each MC ACHS 30 Days #1 kit 06/17/25 Cefdinir [Omnicef] 300 mg PO BID 7 Days #14 cap 06/17/25 Insulin NPH Hum/Reg Insulin Hm [Novolin 70-30 Flexpen] 15 unit SQ ACHS 30 Days #1 box 06/17/25 lisinopriL [Prinivil*] 20 mg PO DAILY 30 Days #30 tab 06/17/25 New Medications: Alcohol Antiseptic Pads [Alcohol Swabs] 1 each TP ACHS 30 Days #1 box Blood Sugar Diagnostic [Glucose Test Strip] 1 each MC ACHS 30 Days #1 box Insulin NPH Hum/Reg Insulin Hm [Novolin 70-30 Flexpen] 15 unit SQ ACHS 30 Days #1 box Cefdinir [Omnicef] 300 mg PO BID 7 Days #14 cap lisinopriL [Prinivil*] 20 mg PO DAILY 30 Days #30 tab Blood-Glucose Meter [Relion All-in-One] 1 each ACHS 30 Days #1 kit Followup: NONE,NONE [Primary Care Provider] - Cristin George MD [ACTIVE - CAN ADMIT] -
--- NOTE | 2025-06-17 13:20 | P.PN ---
Date of Service: 06/17/25 Subjective: Seen resting in bed. We used a gas dispenser over the phone. She understands her diabetes and what this means for her health. We discussed sending her home later today. Review of Systems 10-point ROS is otherwise unremarkable Physical Examination - Physical Exam General: Alert, In no apparent distress, Oriented x3, Cooperative HEENT: Atraumatic, Normocephalic, PERRLA, Mucous membr. moist/pink Neck: Supple, 2+ carotid pulse no bruit, No LAD, Without JVD or thyroid abnormality Respiratory: Clear to auscultation bilaterally, Normal air movement Cardiovascular: No edema, Normal pulses, Regular rate/rhythm, Normal S1 S2, Abnormal S3, No gallops, No rubs, No murmurs Capillary refill: <2 Seconds Gastrointestinal: Normal bowel sounds, Soft and benign, Non-distended, W/out hepatomegaly, No ascites, No tenderness, No masses, No rebound, No guarding Musculoskeletal: No clubbing, No swelling, No contractures, No erythema, No tenderness, No warmth Integumentary: No rashes, No breakdown, No significant lesion, No tenderness/swelling, No erythema, No warmth, No cyanosis Neurological: Normal gait, Normal speech, Normal strength at 5/5 x4 extr, Normal tone, Sensation intact, Cranial nerves 3-12 intact, Normal reflexes 2+, Normal affect Lymphatics: No axilla or inguinal lymphadenopathy - Studies Laboratory Data (last 24 hrs) 06/16/25 06/15/25 06/15/25 01:37 22:43 21:54 WBC Hgb Hct Plt Count Sodium 136 137 Cancelled Potassium 3.5 3.4 L Cancelled BUN 9 11 Cancelled Creatinine 0.55 0.56 Cancelled Glucose 233 H 317 H Cancelled Total Bilirubin AST ALT Alkaline Phosphatase Lipase 06/15/25 06/15/25 19:55 19:25 WBC 8.20 Hgb 14.8 Hct 43.2 Plt Count 214 Sodium 134 L Potassium 3.8 BUN 13 Creatinine 0.77 Glucose 457 H* Total Bilirubin 0.3 AST 38 H ALT 68 H Alkaline Phosphatase 146 H Lipase 50 - Studies Laboratory Data (last 24 hrs) 06/16/25 06/15/25 06/15/25 01:37 22:43 21:54 WBC Hgb Hct Plt Count Sodium 136 137 Cancelled Potassium 3.5 3.4 L Cancelled BUN 9 11 Cancelled Creatinine 0.55 0.56 Cancelled Glucose 233 H 317 H Cancelled Total Bilirubin AST ALT Alkaline Phosphatase Lipase 06/15/25 06/15/25 19:55 19:25 WBC 8.20 Hgb 14.8 Hct 43.2 Plt Count 214 Sodium 134 L Potassium 3.8 BUN 13 Creatinine 0.77 Glucose 457 H* Total Bilirubin 0.3 AST 38 H ALT 68 H Alkaline Phosphatase 146 H Lipase 50 Assessment and Plan - Plan Patient is a 45-year-old female who reports to ER due to hyperglycemia initial blood sugar 512, patient admitted to inpatient. (1)Hyperglycemia. -Restarted on metformin 1000 mg p.o. twice daily. -Lantus 10 units subcu daily. -IV NS at 125 mL/ hr. -ACHS/moderate sliding scale coverage. -A1c at 12.2 -Start 70/30 Novolin, diabetic supplies prescribed - Follow-up with primary care doctor (2)Essential hypertension. - Lisinopril 20 mg p.o. daily. -Hydralazine 10 mg IV as needed every 6 hours for systolic of 160 or greater and diastolic of 90 or greater. (3)Explained the entire treatment plan to the patient, and significant other present at the bedside, solicit questions answered and voiced understanding. Discharge Plan: Home Plan to discharge in: 72 Hours - Advance Directives Does patient have a Living Will: No Does patient have a Durable POA for Healthcare: No - Code Status/Comfort Care Code Status Assessed: Yes Code Status: Full Code Critical Care: No Time spent on the encounter, including patient evaluation, history taking, physical exam, medical decision making, coordination of care, and documentation, was 35 minutes. Time includes direct [id number] interaction with the patient and indirect time spent reviewing records, ordering tests, and discussing the care plan.
== END 2025-06-17 14:42 | disposition home or self-care (01) | DRG 639 ==
LOC: ER 18:19 → ERHOLD 06-16 03:19 → 4TH 06-16 03:44
PROVIDERS: ADMIT Internal Medicine; ATTEND Family Medicine
DX: E10.10 Type 1 diabetes mellitus with ketoacidosis without coma (principal); I10 Essential (primary) hypertension; E86.0 Dehydration; T38.3X6A Underdosing of insulin and oral hypoglycemic [antidiabetic] drugs, initial encounter; Z79.4 Long term (current) use of insulin; Z79.84 Long term (current) use of oral hypoglycemic drugs; Z91.148 Patient's other noncompliance with medication regimen for other reason; Z79.899 Other long term (current) drug therapy
CPT/HCPCS: 36415; 80048; 80053; 81001; 82803; 82947; 83036; 83690; 83735; 84100; 85025; 87086; 87088; 96361; 96374; 99285; J1650; J1815; J3475; J7030